=== PATIENT | female | born 1940 | race Caucasian/White ===

== ENCOUNTER 2019-04-25 10:44 | Inpatient (IN) | payer MEDICARE, OTHER ==
[~2019-04-25] VITALS: Ht 162.6 cm; Wt 79.4 kg
[2019-04-25] MEDS ORDERED: PREVALITE POWD231 GM PO (10:51)
[2019-04-25] MEDS ORDERED: BENICAR5 MG PO (10:51)
[2019-04-25 11:21] LABS: BASOPHILS 0.1 % (0-2); EOSINOPHILS 0 % (0-7); HEMOGLOBIN 12.5 g/dL (12-16); IMMATURE GRANULOCYTES 0.3 % (0-5); LYMPHOCYTES 2.2 % (15-50); MCH 29.4 pg (26.0-34.0); MCHC 32.9 g/dL (31.0-37.0); MCV 89.4 fL (80.0-100.0); MEAN PLATELET VOLUME 9.8 fL (7.4-10.4); MONOCYTES 3.8 % (2-11); NEUTROPHILS 93.6 % (40-80); PLATELET COUNT 223 10x3/uL (130-400); RBC 4.25 10x6/uL (4.00-5.40); RDW 12.8 % (11.5-14.5); WBC 13.8 10x3/uL (4.8-10.8)
[2019-04-25 11:29] LABS: INR 1.04 (0.85-1.17); PROTIME 13.5 SECONDS (11.6-15.0)
[2019-04-25 11:30] LABS: CALC OSMOLALITY 278 mosm/kg (275-300); CARBON DIOXIDE 27.9 mmol/L (21.0-32.0); CHLORIDE - SERUM 98 mmol/L (98-107); CREATININE - SERUM 0.7 mg/dL (0.6-1.3); GLUCOSE 147 mg/dL (74-106); POTASSIUM - SERUM 3.8 mmol/L (3.5-5.1); SODIUM 136 mmol/L (136-145); UREA NITROGEN 23 mg/dL (7-18); eGFR NON AFRICAN AMERICAN 86 mL/min (90-120)
[2019-04-25 11:47] LABS: ALBUMIN 3.7 g/dL (3.4-5.0); ALKALINE PHOSPHATASE 95 U/L (30-120); ALT (SGPT) 18 U/L (10-68); BILIRUBIN - TOTAL 0.66 mg/dL (0.2-1.3); CKMB 0.4 U/L (0.0-3.6); CREATINE KINASE 50 UL (21-215); PRO BNP 160 pg/mL (0-450); PROTEIN - SERUM 7.8 g/dL (6.4-8.2)
[2019-04-25 11:48] LABS: TROPONIN-I < 0.017 ng/mL (0.000-0.060)
[2019-04-25 13:39] VITALS: BP 110/56
[2019-04-25 13:42] VITALS: BP 102/49
[2019-04-25 13:51] VITALS: BP 133/76
--- NOTE | 2019-04-25 14:40 | NUR ---
PT RECIEVED TO ROOM 8 VIA STRETCHER FROM ER. PT ALERT AND ORIENTED. IV TO LEFT AND RIGHT AC. LEFT AC WITH ZITHROMAX INFUSING VIA PUMP PER MD ORDERS. RIGHT AC WITH BOLUS INFUSING. BOTH SITES WITHOUT REDNESS OR EDEMA. PT REPORTS CHRONIC NECK LEFT SHOULDER AND BACK PAIN. O2 @ 3L NC IN PLACE. ORIENTED TO BED CONTROLS, CL AND ROOM. PT DENIES ANY QUESTIONS AT THIS TIME. CL WITHIN REACH. ENCOURAGED TO CALL WITH NEEDS.
[2019-04-25] MEDS ORDERED: COMBIVENT RESPIM4 GM INH (14:42)
[2019-04-25] MEDS ORDERED: FLUTICASONE PRO16 GM NASAL (14:42)
--- NOTE | 2019-04-25 15:14 | MORECARE ---
CASE MANAGEMENT DISCHARGE SUMMARY PATIENT: LAUREL SOTO UNIT: [id number] ADM DATE: 04/25/19 AGE: 78 : 41 SEX: F ROOM/BED: D.8187 AUTHOR: TEODORO,DOC PHYSICIAN: REFERRING PHYSICIAN: BRYAN FELIX MD DATE OF SERVICE: 04/25/19 Discharge Plan Patient Name: LAURLE SOTO Facility: [facility]:[place] : 1940 Planned Disposition: Home Anticipated Discharge Date: 04/29/19 Discharge Date: Expected LOS: 4 Initial Reviewer: [email or web address] Initial Review Date: 04/25/2019 Generated: 04/25/19 4:13 pm DCP- Discharge Planning Updated by [email or web address]: Maria Isabel Cobb on 04/25/19 2:[address] DC PLAN: Return home alone at in. ANTICIPATED DC NEEDS: denied known dc needs at time of assessment in the ER. CM met with patient to complete initial dc planning assessment. CM educated patient on the CM role and verbal consent given by patient to complete assessment. CM verified patient's address, phone number, and emergency contact phone numbers. Patient lives at home alone and reports she is independent in her care at home. She has home oxygen with portability. She also has a nebulizer. At discharge patient plans to return home and feels this is a safe discharge. CM discussed availability of home health, rehab services, and medical equipment. Patient denied known discharge needs at this time. Transportation provider at discharge will be her son. CM will continue to follow and will assist as needed with dc plans/needs. Maria Isabel Cobb RN, [facility] DCPIA - Discharge Planning Initial Assessment Updated by [email or web address]: Maria Isabel Cobb on 04/25/19 3:09 pm * Is the patient Alert and Oriented? Yes * How many steps to enter\exit or inside your home? None * PCP Dr. Andrews * Pharmacy [facility] [address] * Preadmission Environment Home Alone * ADLs Independent * Equipment Nebulizer Oxygen * Other Equipment [employer] is DME provider. O2 with portability. * List name and contact numbers for known caregivers / representatives who currently or will assist patient after discharge: Clint Shirley - yvette - [phone] * Verbal permission to speak to the caregivers and representatives has been obtained from the patient. Yes * Community resources currently utilized Other * Please name any agencies selected above. House keeper one time a week. * Additional services required to return to the preadmission environment? No * Can the patient safely return to the preadmission environment? Yes * Has this patient been hospitalized within the prior 30 days at any hospital? No Patient Name: LAUREL SOTO Page [id number] at 1514 All edits/amendments must be made on the electronic document DICTATION DATE: 04/25/19 151 MANAGER BEHAVIOR: SHAJI 04/25/191512 RPT#: [id number] DC DATE: STATUS: ADM IN [facility] [address] [place] [address] END OF REPORT
[2019-04-25 18:04] VITALS: BP 121/54; BMI 30.1
[2019-04-25 19:30] VITALS: BP 98/41
--- NOTE | 2019-04-26 | NUR ---
A&O X 4 IN ROOM. REPORTS SORENESS/ARTHRITIC PAIN ALL OVER. ALSO REPORTS FEELING NAUSEA. IV TO RIGHT FOREARM LEAKING, IV REMOVED WITH CATH INTACT. FLUIDS SWITCHED TO LEFT FOREARM. PT AMBULATED TO BATHROOM AND BACK INDEPENDENTLY. NO FURTHER NEEDS AT THIS TIME.
[2019-04-26 00:30] VITALS: BP 94/52
--- NOTE | 2019-04-26 03:58 | NUR ---
I have reviewed this patient and I concur with the Shift Assessment completed by the Licensed Practical Nurse today this shift.
[2019-04-26 05:24] LABS: BASOPHILS 0.1 % (0-2); EOSINOPHILS 0 % (0-7); HEMATOCRIT 32.4 % (36.0-48.0); HEMOGLOBIN 10.3 g/dL (12-16); IMMATURE GRANULOCYTES 0.3 % (0-5); MCHC 31.8 g/dL (31.0-37.0); MCV 91.3 fL (80.0-100.0); MEAN PLATELET VOLUME 10.3 fL (7.4-10.4); MONOCYTES 5.8 % (2-11); NEUTROPHILS 86.8 % (40-80); PLATELET COUNT 179 10x3/uL (130-400); RBC 3.55 10x6/uL (4.00-5.40); RDW 12.9 % (11.5-14.5); WBC 11.3 10x3/uL (4.8-10.8)
[2019-04-26 05:30] VITALS: BP 100/65
[2019-04-26 05:50] LABS: ALKALINE PHOSPHATASE 62 U/L (30-120); BILIRUBIN - TOTAL 0.33 mg/dL (0.2-1.3); CALCIUM 8.4 mg/dL (8.5-10.1); CARBON DIOXIDE 30.7 mmol/L (21.0-32.0); CHLORIDE - SERUM 106 mmol/L (98-107); CREATININE - SERUM 0.6 mg/dL (0.6-1.3); GLUCOSE 105 mg/dL (74-106); MAGNESIUM - SERUM 1.8 mg/dL (1.8-2.4); PHOSPHOROUS 3.3 mg/dL (2.5-4.9); POTASSIUM - SERUM 3.6 mmol/L (3.5-5.1); SODIUM 142 mmol/L (136-145); eGFR NON AFRICAN AMERICAN > 90 mL/min (90-120)
[2019-04-26 05:53] LABS: ALBUMIN 2.3 g/dL (3.4-5.0); ALT (SGPT) 11 U/L (10-68); CALC OSMOLALITY 283 mosm/kg (275-300); PROTEIN - SERUM 5.7 g/dL (6.4-8.2); UREA NITROGEN 14 mg/dL (7-18)
[2019-04-26 08:28] LABS: NITRITE NEGATIVE (NEGATIVE)
[2019-04-26 08:29] LABS: BILIRUBIN NEGATIVE (NEGATIVE); GLUCOSE 50 mg/dL (NEGATIVE); KETONE NEGATIVE (NEGATIVE); UROBILINOGEN NORMAL (NORMAL)
--- NOTE | 2019-04-26 09:00 | NUR ---
ALERT AND ORIENTED X4. SLIGHT DYSPNEA NOTED WITH 02 2L N/C. IV TO LEFT FOREARM. HRRR WITH BREATH SOUNDS DIMINISHED X4 POSTERIOR. ENOURAGED TO USE CALL LIGHT FOR ASSIST. DENIES ANY PAIN OR DISCOMFORT AT THIS TIME
[2019-04-26 09:39] VITALS: BP 99/51
[2019-04-26 13:20] VITALS: BP 129/54
--- NOTE | 2019-04-26 14:55 | NUR ---
PATIENT ADMITTED AND ORIENTED TO ROOM. ALERT AND ORIENTED X4 WITH SLIGHT DYSPNEA NOTED WITH MINIMAL EXERTION. INSPIRATORY AND EXPIRATORY WHEEZES NOTED X4 POSTERIOR WITH CAP REFILL <3 SEC AND PUSLE OX 93%ON RA. HRRR AND NO PERIPERAL EDEMA NOTED. ENCOURAGED TO USE CALL LIGHT FOR ASSIST.
[2019-04-26 16:28] VITALS: BP 100/34
[2019-04-26 20:00] VITALS: BP 115/57
--- NOTE | 2019-04-26 20:15 | NUR ---
LYING QUEITLY WITH NO DISTRESS NOTED. RESP UNALBORED. O2 @ 2L PER NC ON. UP AD FAN TO BR. NO COMPLAITNS VOCIED. CL IN REACH
[2019-04-27] VITALS: BP 94/46
--- NOTE | 2019-04-27 03:09 | NUR ---
I have reviewed this patient and I concur with the Shift Assessment completed by the Licensed Practical Nurse today this shift.
[2019-04-27 04:00] VITALS: BP 109/53
[2019-04-27 06:41] LABS: BASOPHILS 0.1 % (0-2); EOSINOPHILS 0.8 % (0-7); HEMATOCRIT 31.4 % (36.0-48.0); HEMOGLOBIN 9.8 g/dL (12-16); IMMATURE GRANULOCYTES 0.3 % (0-5); LYMPHOCYTES 11.7 % (15-50); MCHC 31.2 g/dL (31.0-37.0); MCV 92.9 fL (80.0-100.0); MEAN PLATELET VOLUME 10.7 fL (7.4-10.4); MONOCYTES 6.5 % (2-11); NEUTROPHILS 80.6 % (40-80); PLATELET COUNT 185 10x3/uL (130-400); RBC 3.38 10x6/uL (4.00-5.40); RDW 13.2 % (11.5-14.5)
[2019-04-27 06:43] LABS: WBC 7.4 10x3/uL (4.8-10.8)
[2019-04-27 07:12] LABS: CALC OSMOLALITY 284 mosm/kg (275-300); CALCIUM 7.9 mg/dL (8.5-10.1); CARBON DIOXIDE 29.8 mmol/L (21.0-32.0); CHLORIDE - SERUM 108 mmol/L (98-107); CREATININE - SERUM 0.6 mg/dL (0.6-1.3); GLUCOSE 102 mg/dL (74-106); MAGNESIUM - SERUM 2.1 mg/dL (1.8-2.4); PHOSPHOROUS 2.9 mg/dL (2.5-4.9); POTASSIUM - SERUM 3.6 mmol/L (3.5-5.1); SODIUM 143 mmol/L (136-145); UREA NITROGEN 13 mg/dL (7-18); eGFR NON AFRICAN AMERICAN > 90 mL/min (90-120)
--- NOTE | 2019-04-27 09:22 | NUR ---
PT ALERT X 4. EXPIRATORY WHEEZES TO ALL STOREY, PT REPORTING SOB, 2L O2 PER NC. IV TO LEFT FOREARM, PATENT, DRESSING CDI. PT REPORTING NO PAIN AT THIS TIME. BED LOW, CALL LIGHT IN REACH. NO OTHER NEEDS AT THIS TIME.
--- NOTE | 2019-04-27 09:47 | EC ---
PATIENT:LAUREL SOTO DATE OF SERVICE: 04/25/19 SEX: F MEDICAL RECORD: [id number] DATE OF : 42 LOCATION:D.MS Jain AGE OF PATIENT: 78 ADMISSION DATE: 04/25/19 REFERRING PHYSICIAN: INTERPRETING PHYSICIAN: JESSEE RASMUSSEN MD ECHOCARDIOGRAM REPORT ECHO CHARGES 4 ECHO COMPLETE Date: 04/26/19 CLINICAL DIAGNOSIS: DYSPNEA ECHOCARDIOGRAPHIC MEASUREMENTS (adult normal given) AC root (d.<3.7cm) 2.8 cm LV Septum d (<1.2 cm> 1.1 cm Valve Excursion 1.5 cm LV Septum (systole) 1.3 cm Left Atria (s.<4.0cm> 2.6 cm LVPW d(<1.2cm) 1.2 cm RV (d.<2.3cm) 2.9 cm LVPW (sytole) 1.3 cm LV diastole(<5.6CM) 3.7 cm MV E-F(>70mm/sec) cm LV systole 2.6 cm LVOT Diameter 1.9 cm MV exc.(>10mm) cm Est.ejection fraction (50-75%) % DOPPLER: LVIT cm/sec A 97 cm/sec E 65 cm/sec LA cm/sec RVSP 20.4 mmHg LVOT 124 cm/sec AOP1/2T m/s Asc. Ao 126 cm/sec RVOT 75 cm/sec RA cm/sec PA 143 cm/sec AV Gradient Peak 6.3 mmHg AV Mean 3.5 mmHg AV Area 2.4 cm MV Gradient Peak 7.2 mmHg MV Mean 3.4 mmHg MV Area cm COMMENTS: Social Media Project Manager: Hien BENNETT Refractory Technician: 3 Dr. Gates TAPE# PACS Pericardial Effusion N DATE OF SERVICE: Adequate 2D, color flow imaging, spectral Doppler, and M-Mode No LVH. LV internal dimensions are normal. Wall motion is normal. EF is greater than or equal to 55%. Aortic valve is sclerotic. No evidence of stenosis by Doppler interrogation. Left atrium is normal. Mitral valve shows no prolapse. Trace MR. Right-sided chambers are grossly normal. Trace TR. TRANSINT:[id number] Voice Confirmation ID: [id number] DOCUMENT ID: [id number] ECHOCARDIOGRAM REPORT [id number] LAUREL SOTO JESSEE RASMUSSEN MD at 0947 CC: [id number] DICTATION DATE: 04/26/19 1232 PHARMACY TECH: 04/26/19 1610 ADM IN [place] [id number] [place] [id number]
[2019-04-27 12:57] VITALS: BP 115/51
[2019-04-27 16:47] VITALS: BP 109/59
[2019-04-27 20:00] VITALS: BP 149/69
--- NOTE | 2019-04-27 20:30 | NUR ---
LYING QUEITLY WITH NO DISTESS NOTED. RESP EVEN AND UNALBORED. IV TO LEFT WRIST INTACT WITHOUT REDNESS OR EDEMA NOTED. CL IN REACH
--- NOTE | 2019-04-28 01:36 | NUR ---
I have reviewed this patient and I concur with the Shift Assessment completed by the Licensed Practical Nurse today this shift.
[2019-04-28 04:00] VITALS: BP 120/57
[2019-04-28 05:35] LABS: BASOPHILS 0.2 % (0-2); IMMATURE GRANULOCYTES 0.4 % (0-5); LYMPHOCYTES 11.7 % (15-50); MCHC 31.3 g/dL (31.0-37.0); MCV 92.8 fL (80.0-100.0); MEAN PLATELET VOLUME 9.9 fL (7.4-10.4); MONOCYTES 5.1 % (2-11); NEUTROPHILS 81.6 % (40-80); PLATELET COUNT 184 10x3/uL (130-400); RBC 3.45 10x6/uL (4.00-5.40); RDW 12.9 % (11.5-14.5)
[2019-04-28 05:36] LABS: WBC 4.9 10x3/uL (4.8-10.8)
[2019-04-28 06:16] LABS: % SATURATION 20 % (15-55); IRON 35 ug/dl (35-150); TOTAL IRON BIND CAPACITY 168 ug/dl (260-445); UNSAT IRON BIND CAPACITY 133 ug/dl (150-375)
[2019-04-28 06:40] LABS: CALC OSMOLALITY 280 mosm/kg (275-300); CARBON DIOXIDE 33.5 mmol/L (21.0-32.0); CHLORIDE - SERUM 105 mmol/L (98-107); CREATININE - SERUM 0.7 mg/dL (0.6-1.3); FERRITIN 169 ng/mL (3-244); GLUCOSE 118 mg/dL (74-106); MAGNESIUM - SERUM 2.2 mg/dL (1.8-2.4); PHOSPHOROUS 3.4 mg/dL (2.5-4.9); POTASSIUM - SERUM 3.5 mmol/L (3.5-5.1); SODIUM 141 mmol/L (136-145); UREA NITROGEN 10 mg/dL (7-18); eGFR NON AFRICAN AMERICAN 86 mL/min (90-120)
--- NOTE | 2019-04-28 07:00 | NUR ---
RESTING IN BED WITH EYES OPEN, ALERT AND ORIENTED. IV LOCATED TO LEFT HAND RUNNING LR @ 50ML. CURRENTLY RCVING 2L VIA NC. NO S/S OF DISTRESS, DENIES NEEDS, WILL CONT TO MONITOR.
[2019-04-28 08:34] VITALS: BP 127/58
[2019-04-28 12:19] VITALS: BP 131/64
[2019-04-28 16:35] VITALS: BP 134/68
[2019-04-28 20:00] VITALS: BP 133/61
--- NOTE | 2019-04-28 20:40 | NUR ---
LYING QUEITLY WITH NO DISTRESS NOTED. O2 @ 2L PER NC ON. RESP UNLABORED. IV TO LEFT HAND INTACT WITHOUT REDNESS OR EDEMA NOTED. CL IN REACH
[2019-04-29] VITALS: BP 115/56
--- NOTE | 2019-04-29 01:46 | NUR ---
I have reviewed this patient and I concur with the Shift Assessment completed by the Licensed Practical Nurse today this shift.
[2019-04-29 04:00] VITALS: BP 125/58
[2019-04-29 05:15] LABS: BASOPHILS 0.2 % (0-2); EOSINOPHILS 1.5 % (0-7); HEMATOCRIT 32.5 % (36.0-48.0); IMMATURE GRANULOCYTES 0.4 % (0-5); LYMPHOCYTES 15.2 % (15-50); MCH 28.3 pg (26.0-34.0); MCHC 30.8 g/dL (31.0-37.0); MCV 92.1 fL (80.0-100.0); MEAN PLATELET VOLUME 9.8 fL (7.4-10.4); MONOCYTES 7.6 % (2-11); NEUTROPHILS 75.1 % (40-80); RBC 3.53 10x6/uL (4.00-5.40); RDW 12.7 % (11.5-14.5); WBC 5.4 10x3/uL (4.8-10.8)
[2019-04-29 05:32] LABS: PLATELET COUNT 234 10x3/uL (130-400)
[2019-04-29 05:55] LABS: CALC OSMOLALITY 283 mosm/kg (275-300); CALCIUM 7.9 mg/dL (8.5-10.1); CARBON DIOXIDE 33.9 mmol/L (21.0-32.0); CHLORIDE - SERUM 105 mmol/L (98-107); CREATININE - SERUM 0.6 mg/dL (0.6-1.3); GLUCOSE 97 mg/dL (74-106); PHOSPHOROUS 3.5 mg/dL (2.5-4.9); POTASSIUM - SERUM 3.8 mmol/L (3.5-5.1); SODIUM 143 mmol/L (136-145); UREA NITROGEN 10 mg/dL (7-18); eGFR NON AFRICAN AMERICAN > 90 mL/min (90-120)
--- NOTE | 2019-04-29 06:50 | NUR ---
ALERT AND ORIENTED, RESTING IN BED WITH EYES OPEN. NO C/O PAIN. NO S/S OF ACUTE DISTRESS NOTED. SOB ON EXERTION. ON 4L O2, NC. IV TO LEFT HAND, LR INFUSING @ 50ML/HR. SITE RED AND BRUISED. DENIES ANY NEEDS AT THIS TIME. CALL LIGHT IN REACH. WILL CONTINUE TO MONITOR.
--- NOTE | 2019-04-29 09:00 | NUR ---
DISCONTINUED IV TO LEFT HAND, INFILTRATED, CATHETER TIP INTACT. RESITED TO RIGHT FOREARM, 22 GA X1 STICK WITH BLOOD RETURN. DENIES ANY NEEDS AT THIS TIME. CALL LIGHT IN REACH. WILL CONTINUE TO MONITOR.
[2019-04-29 10:19] VITALS: BP 159/78
[2019-04-29 12:45] VITALS: BP 108/66
--- NOTE | 2019-04-29 12:56 | NUR ---
I have reviewed this patient and I concur with the Shift Assessment completed by the Licensed Practical Nurse today this shift.
[2019-04-29 13:40] VITALS: Ht 162.6 cm; Wt 79.4 kg
--- NOTE | 2019-04-29 16:28 | NUR ---
REHAB PRESCREENING Rehab referral received and chart reviewed. PT and OT signed off on this patient 04/26/2019. She does not have a documented need for 2 disciplines of therapy and does not meet admission criteria. Thank you for this referral! Ester Brewer, BEAUTY OPERATOR APPRENTICE Rehab PD
[2019-04-29 17:15] VITALS: BP 160/80
--- NOTE | 2019-04-29 18:25 | NUR ---
ALERT AND ORIENTED, RESTING IN BED WITH EYES OPEN. NO C/O PAIN. NO S/S OF ACUTE DISTRESS NOTED. DENIES ANYTHING FURTHER AT THIS TIME. CALL LIGHT IN REACH. WILL CONTINUE TO MONITOR.
--- NOTE | 2019-04-29 20:00 | NUR ---
PT SITTING UP IN BED WITHOUT DISTRESS, AOX4. STATES SHE HAS HEADACHE 07/27. GAVE TYLENOL ORDERED. O2 4L/NC. SOB WITH EXERTION TO BATHROOM. IV RIGHT FA INFUSING LR @ 50. DENIES NEEDS AT THIS TIME. CL IN REACH, WILL CTM
[2019-04-29 20:24] VITALS: BP 124/73
[2019-04-30 00:34] VITALS: BP 121/60
--- NOTE | 2019-04-30 04:28 | NUR ---
PT STATES PAIN IN HIPS 05/27. REQUESTED TYLENOL AND TO TAKE HER PROTONIX SO SHE DID NOT HAVE TO BE WOKEN UP LATER. DENIES OTHER NEEDS. CL IN REACH, WILL CTM
[2019-04-30 04:54] VITALS: BP 97/72
[2019-04-30 06:35] LABS: BASOPHILS 0.2 % (0-2); EOSINOPHILS 2.6 % (0-7); HEMATOCRIT 33.4 % (36.0-48.0); HEMOGLOBIN 10.3 g/dL (12-16); IMMATURE GRANULOCYTES 0.6 % (0-5); LYMPHOCYTES 11.5 % (15-50); MCH 28.5 pg (26.0-34.0); MCHC 30.8 g/dL (31.0-37.0); MCV 92.3 fL (80.0-100.0); MEAN PLATELET VOLUME 9.6 fL (7.4-10.4); NEUTROPHILS 75.1 % (40-80); PLATELET COUNT 227 10x3/uL (130-400); RBC 3.62 10x6/uL (4.00-5.40); RDW 12.7 % (11.5-14.5); WBC 5.4 10x3/uL (4.8-10.8)
--- NOTE | 2019-04-30 06:50 | NUR ---
ALERT AND ORIENTED, RESTING IN BED WITH EYES OPEN. NO C/O PAIN. NO S/S OF ACUTE DISTRESS NOTED. UP WITH ASSIST. SOB ON EXERTION. ON 4L O2, NC. WHEEZING RML, RLL AND LLL. DIMINISHED RUL AND PIERRE. IV TO RIGHT FOREARM, LR INFUSING @ 50ML/HR. SITE PATENT WITHOUT REDNESS OR SWELLING. ON TELEMETRY 59 SB. DENIES ANY NEEDS AT THIS TIME. CALL LIGHT IN REACH. WILL CONTINUE TO MONITOR.
[2019-04-30 07:01] LABS: CALC OSMOLALITY 283 mosm/kg (275-300); CARBON DIOXIDE 33.3 mmol/L (21.0-32.0); CHLORIDE - SERUM 104 mmol/L (98-107); CREATININE - SERUM 0.6 mg/dL (0.6-1.3); GLUCOSE 102 mg/dL (74-106); POTASSIUM - SERUM 3.6 mmol/L (3.5-5.1); SODIUM 143 mmol/L (136-145); UREA NITROGEN 10 mg/dL (7-18); eGFR NON AFRICAN AMERICAN > 90 mL/min (90-120)
--- NOTE | 2019-04-30 08:32 | CN ---
PATIENT NAME:LAUREL SOTO MEDICAL RECORD: [id number] : 42 LOCATION:D.MS [id number] ADMIT DATE: 04/25/19 ACCOUNT: [id number] CONSULTING PHYSICIAN: JESSEE RASMUSSEN MD REFERRING PHYSICIAN: BRYAN FELIX MD DATE OF CONSULTATION: 04/28/2019 HISTORY OF PRESENT ILLNESS: A 78-year-old female with a history of hypertension and hyperlipidemia, admitted with rapid progressing fatigue, fever, shortness of breath, chest pain ongoing for about 48 hours prior to admission. She was found to have an abnormality in the chest x-ray. This was round of pneumonia versus mass. She reports prior to current admission was actually did quite well, exercises, walking fairly frequently. She was not been told previously heart disease or obstructive pulmonary disease. We are asked to see her concerning her cardiovascular status. PAST MEDICAL HISTORY: Includes; 1. History of hypertension. 2. Dyslipidemia. ALLERGIES: PENICILLIN, ERYTHROMYCIN, METRONIDAZOLE, PEPCID, AND SYMBICORT. CHRONIC MEDICATIONS: Include Combivent 1 puff q.4 p.r.n., cholestyramine 4 gram b.i.d., Benicar 5 mg p.o. daily, fludrocortisone nasal every day. SOCIAL HISTORY: Nonsmoker, nondrinker. She takes care of all her ADLs. Stays quite active. REVIEW OF SYSTEMS: The patient reports easy bruising but reports no swollen glands. The patient reports no fever, no night sweats, no significant weight gain, no significant weight loss. No significant exercise tolerance. The patient reports no dry eyes, no irritation, no vision change. Patient reports no difficulty hearing and no ear pain. Patient reports no frequent nose bleeds or nose and sinus problems. Patient reports on arm pain on exertion. No shortness of breath while lying down. No history of heart murmur. Patient reports no cough, no wheezing or coughing up blood. Patient reports no abdominal pain, no vomiting. Normal appetite. No diarrhea and not vomiting blood. No nausea and no constipation. Patient reports no incontinence. No difficulty urinating. No hematuria. No increased frequency. Patient reports no muscle aches. No weakness, no arthralgias, no back pain. No swelling of the extremities. Patient reports no abnormal mole, no jaundice, no rashes. Reports no loss of consciousness. No weakness and no numbness. No seizures, dizziness, or headaches. The patient reports no depression, no sleep disturbance, feeling safe in a relationship and no alcohol abuse. Patient reports on fatigue. Reports no runny nose or sinus pressure. No itching, no hives, and no frequent sneezing. PHYSICAL EXAMINATION: GENERAL: Pleasant female, in no acute distress. VITAL SIGNS: Blood pressure 131/64, pulse 78 and regular. HEENT: Normocephalic, atraumatic. NECK: No JVD or bruits noted. HEART: Regular. II/ ejection murmur. LUNGS: Good air excursion. ABDOMEN: Soft, nontender. CONSULT REPORT [id number] CHARLESLAUREL F EXTREMITIES: Pulses well preserved 2+ with no edema. DIAGNOSTIC DATA: EKG shows poor R-wave progression. IMPRESSION: Given rapid onset, I doubt acute coronary syndrome without acute ECG changes or any change in cardiac enzymes. Certainly given risk factors, could consider a noninvasive evaluation when current medical condition improves. Further recommendations based on clinical course. TRANSINT:[id number] Voice Confirmation ID: [id number] DOCUMENT ID: [id number] JESSEE RASMUSSEN MD at 0832 CC: [id number] DICTATION DATE: 04/28/19 1310 DRUM STOCK CLERK: 04/28/19 1351 ADM IN [place] [id number] [place] [id number]
[2019-04-30 09:09] VITALS: BP 129/58
--- NOTE | 2019-04-30 11:09 | NUR ---
I have reviewed this patient and I concur with the Shift Assessment completed by the Licensed Practical Nurse today this shift.
[2019-04-30 13:08] VITALS: BP 133/70
--- NOTE | 2019-04-30 15:17 | NUR ---
OT NOTE: PT AGREEABLE TO PARTICIPATE IN THERAPY. REQUESTED THAT WHEN WE WERE FINISHED, IF I COULD STAY AND MAKE SURE SHE WAS BREATHING OK. EXPLAINED THAT WE WOULD MONITOR HER 02 SATS THROUGHOUT SESSION. PT SLIGHTLY IMPULSIVE AND BALANCE IS FAIR. INDEP WITH BED MOB; ABLE TO AMB TO BATHROOM WITH SBA. AMBULATED INTO HALLWAY WITH MIN ASSIST WITHOUT USE OF AD.. OCCASSIONAL LOB. PT ABLE TO AMB APPROX 110'..PT BECAME VERY SOB AT END OF WALK. 02 CHECKED MIDWAY THROUGH AMB AND HAD DROPPED TO 84 WHILE HER 02 WAS ON 4L..UPON RETURNING TO ROOM, PT WAS SOB BUT AFTER APPROX 4 MIN, HER SATS INCREASED BACK TO 92 THEN 94. D/W PT AND CM THAT PT WOULD PROBABLY BENEFIT FROM IP REHAB. PT EXPLAINED THAT SHE DID NOT LIKE IN HOUSE REHAB BECAUSE OF THEIR TMT WITH HER . BUT SHE WOULD STILL GO BECAUSE SHE DID NOT FEEL LIKE SHE WAS READY TO GO HOME ALONE WITHOUT ASSIST. PROVIDED INFO TO CM. JENNA SHAFER, OTR/L [phone]
[2019-04-30 16:45] VITALS: BP 119/71
--- NOTE | 2019-04-30 18:37 | NUR ---
ALERT AND ORIENTED, RESTING IN BED WITH EYES OPEN. NO C/O PAIN. NO S/S OF ACUTE DISTRESS NOTED. DENIES ANY NEEDS AT THIS TIME. CALL LIGHT IN REACH. WILL CONTINUE TO MONITOR.
--- NOTE | 2019-04-30 18:52 | NUR ---
OT NOTE: PT COMPLETED BED MOB WITH SBA. PT COMPLETED EOB SITTING WITH SBA. PT COMPLETED BUE AROM AXS AT EOB. PT STATED AFTER AN ACTIVITY SHE FEELS SOB EVEN IF O2 SAT IS NORMAL. [phone] THANK YOU,HANS PETERSEN
--- NOTE | 2019-04-30 19:40 | NUR ---
PT LYING IN BED RESTING WITHOUT DISTRESS, AOX4. IV LEFT FA INFUSING LR @ 50. O2 4L/NC. LUNG SOUNDS DIMINISHED BILAT. SCDS ON. REQUESTED AND GIVEN TYLENOL FOR SORE HIPS. SOB WITH EXERTION. NON PRODUCTIVE COUGH. DENIES OTHER NEEDS. CL IN REACH, WILL CTM
[2019-04-30 20:23] VITALS: BP 157/69
--- NOTE | 2019-04-30 21:00 | NUR ---
RIGHT FA IV INFILTRATED. REMOVED WITH CATHETER INTACT. RESITED 22G IV LEFT FA X1 ATTEMPT. DENIES OTHER NEEDS. WILL CTM
[2019-05-01 01:00] VITALS: BP 148/85
[2019-05-01 04:41] VITALS: BP 157/79
[2019-05-01 05:49] LABS: BASOPHILS 0.4 % (0-2); EOSINOPHILS 2.9 % (0-7); HEMATOCRIT 36.1 % (36.0-48.0); HEMOGLOBIN 11.4 g/dL (12-16); IMMATURE GRANULOCYTES 0.4 % (0-5); LYMPHOCYTES 15.4 % (15-50); MCH 28.9 pg (26.0-34.0); MCHC 31.6 g/dL (31.0-37.0); MCV 91.6 fL (80.0-100.0); MEAN PLATELET VOLUME 9.5 fL (7.4-10.4); MONOCYTES 9.8 % (2-11); NEUTROPHILS 71.1 % (40-80); RBC 3.94 10x6/uL (4.00-5.40); RDW 12.8 % (11.5-14.5); WBC 4.9 10x3/uL (4.8-10.8)
[2019-05-01 06:03] LABS: PLATELET COUNT 274 10x3/uL (130-400)
--- NOTE | 2019-05-01 07:00 | NUR ---
BEDSIDE SHIFT REPORTING COMPLETED. ASSUMED CARE FOR THIS PT. SHIFT ASSESSMENT COMPLETED. PT IS A&O LYING DOWN IN BED RESTING QUIETLY. RR NONLABORED CURRENTLY WITH NC@3.5L IN PLACE. PT STATES SHE GETS SOB WITH ANY ACTIVITY. LUNGS ARE VERY DIMINISHED AND HARD TO AUSCULTATE. PT HAS L.FA PIV WITH INTERMITT. ANBX. PT DENIES ANY CURRENT NEEDS, WILL CHECK CHART AND ORDERS AND CPOC.
[2019-05-01 08:02] VITALS: BP 147/89
--- NOTE | 2019-05-01 11:08 | NUR ---
LACTATED RINGERS 1000 ML RUNNING AT 999 ML/H AND ZITHROMAX BOTH INITIATED 1326. PT TRANSFERRED TO FLOOR BEFORE EITHER WERE FINISHED. BOTH REASSESSED BY STEPHANE TODD AT 1538.
--- NOTE | 2019-05-01 12:00 | NUR ---
PT LYING IN BED VISITING WITH FAMILY. PT DENIES ANY CURRENT PAIN OR NEEDS AT THIS TIME. CL IN REACH. WILL CTM.
--- NOTE | 2019-05-01 12:20 | NUR ---
PT C/O BURNING IN HER VAGINA WHEN SHE URINATES AND JUST RESTING, REDDNESS IS NOTED. SHE STATES SHE IS PRONE TO YEAST INFECTIONS. NEW ORDERS OBTAINED FOR UA AND WILL COLLECT USING CLEAN CATCH. EXPLAINED PROCEDURE TO PT SHE VERBALIZED UNDERSTANDING. WILL CTM.
--- NOTE | 2019-05-01 12:30 | NUR ---
OT NOTE: PT LIEING IN BED. STATED THAT SHE WAS UPSET THAT SHE WAS NOT GETTING TO GO TO REHAB.. AGAIN STATED THAT SHE DIDNT KNOW WHAT TO DO ABOUT HER 02 DROPPING. IM UNSURE IF THERE IS A HX OF THIS, BUT PT STATED THAT SHE WALKED DAILY AT THE MALL. TODAY, PT WAS ABLE TO SUSANA ROBE WITH SET UP AND SET UP WITH SOCKS WITH EXT TIME. REPORTS INCREASED ARTHRITIS PAIN MAKES LE DRESSING DIFFICULT. PT ABLE TO AMB TO BATHROOM AND PERFORM TOILETING WITHOUT ASSIST. PT REQUESTED TO AMBULATE. REQUIRED USE OF GAIT BELT, 02 AT 4L, AND IV.. PT ABLE TO AMB WITH MIN ASSIST, HOWEVER, WHEN 02 CHECKED AT APPROX 100 FT, IT HAD DROPPED TO 84%...WHEN SHE RETURNED TO ROOM, SHE WAS VERY SOB.. 02 IMPROVED AFTER APPROX 4 MIN OF PROPER BREATHING WITH VERBAL INSTRUCTION. MET WITH CM AND DISCUSSED DC PLANS. SHE SPOKE WITH REHAB AND PROVIDED INFO REGARDING DROP IN SATS. JENNA SHAFER, OTR/L [phone]
[2019-05-01 13:25] VITALS: BP 121/76
[2019-05-01] MEDS ORDERED: MUCINEX DM ER1 EAC1 PO (15:15)
[2019-05-01] MEDS ORDERED: SINGULAIR10 MG PO (15:15)
[2019-05-01] MEDS ORDERED: ALBUTEROL2.5 MG/3 M INH (15:15)
[2019-05-01 15:16] LABS: BILIRUBIN NEGATIVE (NEGATIVE); GLUCOSE NEGATIVE (NEGATIVE); KETONE NEGATIVE (NEGATIVE); NITRITE NEGATIVE (NEGATIVE); UROBILINOGEN NORMAL (NORMAL)
--- NOTE | 2019-05-01 16:04 | NUR ---
OT NOTE: PT COMPLETED BED MOB TASKS WITH SBA. PT COMPLETED EOB SITTING WITH SPV. PT COMPLETED HYGIENE TASKS AT EOB WITH SET UP. PT HAS CONTINUING SENSATION OF SOB WITH ACTIVITIES. PT STATED SHE HAD BEEN DENIED FOR THERAPY. MAXWELL ADVISED PT TO DISCUSS SITUATION WITH DIRECTOR OF HOME CARE HOSPICE TO FURTHER UNDERSTANDING OF SITUATION,DETAILS, AND OPTIONS. [phone] ZAINA GREENBERG COTA
--- NOTE | 2019-05-01 17:00 | NUR ---
PT REQUESTED FRESH ICE WATER AND WAS PROVIDED WITH IT. RR NONLABORED AT THIS TIME. PT STATES SHE IS FEELING "ALRIGHT" DENIES ANY CURRENT NEEDS. CL IN REACH, WILL CTM.
[2019-05-01 17:56] VITALS: BP 122/78
--- NOTE | 2019-05-01 18:45 | NUR ---
PT CALLED REQUESTING PRN TYELENOL FOR HEADACHE AND WAS PROVIDED WITH IT. PT VOICED THANKS AND DENIES ANY FURTHER NEEDS AT THIS TIME. WILL PASS ON IN SHIFT REPORT. CL IN REACH, BED IN LOWEST, SIDE RAILS X2.
--- NOTE | 2019-05-01 20:00 | NUR ---
PT LYING IN BED RESTING WITHOUT DISTRESS, AOX4. IV LEFT FA INFUSING NS @ 50. STATES HAVING SOME PAIN IN HIPS AND ANKLES FROM ARTHRITIS. NURSES AID ASSISTING PT UP TO SHOWER. DENIES FURTHER NEEDS. WILL CTM
[2019-05-01 20:50] VITALS: BP 152/71
[2019-05-01 21:06] LABS: IMMUNOGLOBULIN E 39 IU/mL (6-495)
--- NOTE | 2019-05-01 23:00 | NUR ---
PT IV INFILTRATED. REMOVED WITH CATHETER INTACT. STARTED 22G IV RIGHT FA X2 ATTEMPTS. DENIES OTHER NEEDS. WILL CTM
[2019-05-02 00:45] VITALS: BP 142/68
--- NOTE | 2019-05-02 07:15 | NUR ---
REC'D IN BED AWAKE AND ALERT. RESP EVEN AND UNLABORED WITH NO DISTRESS NOTED. CAN EXPRESS NEEDS AND WANTS. NO C/O NOTED OR VOICED. ASSESSMENT COMPLETED. C/L IN REACH AT BEDSIDE.
[2019-05-02 08:47] VITALS: BP 159/82
--- NOTE | 2019-05-02 10:17 | NUR ---
NUTRITION F/U PT TOLERATING AHA DIET WITH GOOD PO INTAKE RECENT MEALS. WILL CONTINUE TO PROVIDE DIET, MONITOR PO INTAKE. RD FOLLOWING
[2019-05-02 10:40] LABS: BASOPHILS 0.4 % (0-2); EOSINOPHILS 2.9 % (0-7); HEMATOCRIT 35.2 % (36.0-48.0); IMMATURE GRANULOCYTES 0.4 % (0-5); LYMPHOCYTES 18.9 % (15-50); MCH 28.9 pg (26.0-34.0); MCHC 31.3 g/dL (31.0-37.0); MCV 92.4 fL (80.0-100.0); MEAN PLATELET VOLUME 9.1 fL (7.4-10.4); MONOCYTES 6.4 % (2-11); PLATELET COUNT 295 10x3/uL (130-400); RBC 3.81 10x6/uL (4.00-5.40); RDW 13.1 % (11.5-14.5); WBC 4.6 10x3/uL (4.8-10.8)
[2019-05-02 10:51] LABS: CALC OSMOLALITY 280 mosm/kg (275-300); CALCIUM 8.5 mg/dL (8.5-10.1); CARBON DIOXIDE 35.2 mmol/L (21.0-32.0); CHLORIDE - SERUM 102 mmol/L (98-107); CREATININE - SERUM 0.6 mg/dL (0.6-1.3); GLUCOSE 113 mg/dL (74-106); POTASSIUM - SERUM 3.4 mmol/L (3.5-5.1); SODIUM 139 mmol/L (136-145); UREA NITROGEN 17 mg/dL (7-18); eGFR NON AFRICAN AMERICAN > 90 mL/min (90-120)
--- NOTE | 2019-05-02 11:53 | MORECARE ---
CASE MANAGEMENT DISCHARGE SUMMARY PATIENT: LAUREL SOTO UNIT: [id number] ADM DATE: 04/25/19 AGE: 78 : 42 SEX: F ROOM/BED: D.9931 AUTHOR: RUEL VALERIO PHYSICIAN: REFERRING PHYSICIAN: BRYAN FELIX MD DATE OF SERVICE: 05/02/19 Discharge Plan Patient Name: LAUREL SOTO Facility: [facility]:[place] : 1940 Planned Disposition: Home Anticipated Discharge Date: 04/29/19 Discharge Date: Expected LOS: 4 Initial Reviewer: [email or web address] Initial Review Date: 04/25/2019 Generated: 05/02/19 12:52 pm Comments DCP- Discharge Planning Updated by [email or web address]: Yuliana Lyon on 05/02/19 10:[address] IMM SERVED AND EXPLAINED. MABLE FOR INPATIENT REHAB AT [facility]. DCP- Discharge Planning Updated by [email or web address]: Maria Isabel Cobb on 04/25/19 2:[address] DC PLAN: Return home alone at co. ANTICIPATED DC NEEDS: denied known dc needs at time of assessment in the ER. CM met with patient to complete initial dc planning assessment. CM educated patient on the CM role and verbal consent given by patient to complete assessment. CM verified patient's address, phone number, and emergency contact phone numbers. Patient lives at home alone and reports she is independent in her care at home. She has home oxygen with portability. She also has a nebulizer. At discharge patient plans to return home and feels this is a safe discharge. CM discussed availability of home health, rehab services, and medical equipment. Patient denied known discharge needs at this time. Transportation provider at discharge will be her son. CM will continue to follow and will assist as needed with dc plans/needs. Maria Isabel Cobb RN, [facility] DCPIA - Discharge Planning Initial Assessment Updated by [email or web address]: Maria Isabel Cobb on 04/25/19 3:09 pm * Is the patient Alert and Oriented? Yes * How many steps to enter\exit or inside your home? None * PCP Dr. Andrews * Pharmacy [facility] on [address] * Preadmission Environment Home Alone * ADLs Independent * Equipment Nebulizer Oxygen * Other Equipment [employer] is DME provider. O2 with portability. * List name and contact numbers for known caregivers / representatives who currently or will assist patient after discharge: Clint crawford - [phone] * Verbal permission to speak to the caregivers and representatives has been obtained from the patient. Yes * Community resources currently utilized Other * Please name any agencies selected above. House keeper one time a week. * Additional services required to return to the preadmission environment? No * Can the patient safely return to the preadmission environment? Yes * Has this patient been hospitalized within the prior 30 days at any hospital? No Last DP export: 04/25/19 2:14 pm Patient Name: LAUREL SOTO Page [id number] at 1153 All edits/amendments must be made on the electronic document DICTATION DATE: 05/02/19 1152 SCRUB NURSE: SHAJI 05/02/19 1152 RPT#: [id number] DC DATE: STATUS: ADM IN [facility] [address] [place] [address] END OF REPORT
[2019-05-02 12:55] VITALS: BP 130/71
--- NOTE | 2019-05-02 13:10 | MORECARE ---
CASE MANAGEMENT DISCHARGE SUMMARY PATIENT: LAUREL SOTO UNIT: [id number] ADM DATE: 04/25/19 AGE: 78 : 41 SEX: F ROOM/BED: D.5173 AUTHOR: TEODORODOC PHYSICIAN: REFERRING PHYSICIAN: BRYAN FELIX MD DATE OF SERVICE: 05/02/19 Discharge Plan Patient Name: LAUREL SOTO Facility: [facility]:[place] : 1940 Planned Disposition: Home Anticipated Discharge Date: 04/29/19 Discharge Date: Expected LOS: 4 Initial Reviewer: [id number] Initial Review Date: 04/25/2019 Generated: 05/02/19 2:10 pm Comments DCP- Discharge Planning Updated by [id number]: Yuliana Lyon on 05/02/19 12:[address] THE PATIENT HAS CHANGED HER MIND ABOUT INPATIENT REHAB, SHE WOULD LIKE TO TALK TO HER DR ABOUT HOME HEALTH DCP- Discharge Planning Updated by [email or web address]: Yuliana Lyon on 05/02/19 10:[address] IMM SERVED AND EXPLAINED. MABLE FOR INPATIENT REHAB AT [facility]. DCP- Discharge Planning Updated by [id number]: Maria Isabel Cobb on 04/25/19 2:[address] DC PLAN: Return home alone at ok. ANTICIPATED DC NEEDS: denied known dc needs at time of assessment in the ER. CM met with patient to complete initial dc planning assessment. CM educated patient on the CM role and verbal consent given by patient to complete assessment. CM verified patient's address, phone number, and emergency contact phone numbers. Patient lives at home alone and reports she is independent in her care at home. She has home oxygen with portability. She also has a nebulizer. At discharge patient plans to return home and feels this is a safe discharge. CM discussed availability of home health, rehab services, and medical equipment. Patient denied known discharge needs at this time. Transportation provider at discharge will be her son. CM will continue to follow and will assist as needed with dc plans/needs. Maria Isabel Cobb RN, [facility] DCPIA - Discharge Planning Initial Assessment Updated by [email or web address]: Maria Isabel Cobb on 04/25/19 3:09 pm * Is the patient Alert and Oriented? Yes * How many steps to enter\exit or inside your home? None * PCP Dr. Andrews * Pharmacy [facility] on [address] * Preadmission Environment Home Alone * ADLs Independent * Equipment Nebulizer Oxygen * Other Equipment [employer] is DME provider. O2 with portability. * List name and contact numbers for known caregivers / representatives who currently or will assist patient after discharge: Clint crawford - [phone] * Verbal permission to speak to the caregivers and representatives has been obtained from the patient. Yes * Community resources currently utilized Other * Please name any agencies selected above. House keeper one time a week. * Additional services required to return to the preadmission environment? No * Can the patient safely return to the preadmission environment? Yes * Has this patient been hospitalized within the prior 30 days at any hospital? No Coverage Notice Reviewer: [id number] Oswald Lyon Notice Issued Date-Time: 05/02/2019 11:40 Notice Type: IM Discharge Notice Notice Delivered To: Patient Relationship to Patient: Bleach Tester Name: Delivery Method: HAND - Hand Delivered Lis Days: Prior Verbal Notification: Recipient Understood Notice: Yes Recipient Signature: Yes Med Rec Note Co-signed by Attending: Coverage Notice Comment: Reviewer: [id number] Oswald Lyon Notice Issued Date-Time: 05/02/2019 11:40 Notice Type: Patient Choice Letter Notice Delivered To: Patient Relationship to Patient: Bleach Tester Name: Delivery Method: HAND - Hand Delivered Lis Days: Prior Verbal Notification: Recipient Understood Notice: Yes Recipient Signature: Yes Med Rec Note Co-signed by Attending: Coverage Notice Comment: MABLE INPATIENT REHAB AT [facility] Last DP export: 05/02/19 10:53 a Patient Name: LAUREL SOTO Page [id number] at 1310 All edits/amendments must be made on the electronic document DICTATION DATE: 05/02/19 1310 NEURO PSYCH SALES SPECIALIST: SHAJI 05/02/19 1310 RPT#: [id number] DC DATE: STATUS: ADM IN [facility] [address] [place] [address] END OF REPORT
--- NOTE | 2019-05-02 13:25 | NUR ---
I have reviewed this patient and I concur with the Shift Assessment completed by the Licensed Practical Nurse today this shift.
--- NOTE | 2019-05-02 14:28 | MORECARE ---
CASE MANAGEMENT DISCHARGE SUMMARY PATIENT: LAUREL SOTO UNIT: [id number] ADM DATE: 04/25/19 AGE: 78 : 41 SEX: F ROOM/BED: D.2208 AUTHOR: TEODORO,DOC PHYSICIAN: REFERRING PHYSICIAN: BRYAN FELIX MD DATE OF SERVICE: 05/02/19 Discharge Plan Patient Name: LAUREL STOO Facility: [facility]:[place] : 1940 Planned Disposition: Home Anticipated Discharge Date: 04/29/19 Discharge Date: Expected LOS: 4 Initial Reviewer: [email or web address] Initial Review Date: 04/25/2019 Generated: 05/02/19 3:28 pm Comments DCP- Discharge Planning Updated by [id number]: Yuliana Lyon on 05/02/19 1:[address] PATIENT HAS CHANGED HER MIND AGAIN AND WANTS TO GO TO INPATIENT REHAB AT [facility] SHE WILL GO TO ROOM 1109 DCP- Discharge Planning Updated by [id number]: Yuliana Lyon on 05/02/19 12:[address] THE PATIENT HAS CHANGED HER MIND ABOUT INPATIENT REHAB, SHE WOULD LIKE TO TALK TO HER DR ABOUT HOME HEALTH DCP- Discharge Planning Updated by [email or web address]: Yuliana Lyon on 05/02/19 10:[address] IMM SERVED AND EXPLAINED. MABLE FOR INPATIENT REHAB AT [facility]. DCP- Discharge Planning Updated by [id number]: Maria Isabel Cobb on 04/25/19 2:[address] DC PLAN: Return home alone at vt. ANTICIPATED DC NEEDS: denied known dc needs at time of assessment in the ER. CM met with patient to complete initial dc planning assessment. CM educated patient on the CM role and verbal consent given by patient to complete assessment. CM verified patient's address, phone number, and emergency contact phone numbers. Patient lives at home alone and reports she is independent in her care at home. She has home oxygen with portability. She also has a nebulizer. At discharge patient plans to return home and feels this is a safe discharge. CM discussed availability of home health, rehab services, and medical equipment. Patient denied known discharge needs at this time. Transportation provider at discharge will be her son. CM will continue to follow and will assist as needed with dc plans/needs. Maria Isabel Cobb RN, [facility] DCPIA - Discharge Planning Initial Assessment Updated by [id number]: Maria Isabel Cobb on 04/25/19 3:09 pm * Is the patient Alert and Oriented? Yes * How many steps to enter\exit or inside your home? None * PCP Dr. Andrews * Pharmacy [facility] on [address] * Preadmission Environment Home Alone * ADLs Independent * Equipment Nebulizer Oxygen * Other Equipment [employer] is DME provider. O2 with portability. * List name and contact numbers for known caregivers / representatives who currently or will assist patient after discharge: Clint crawford - [phone] * Verbal permission to speak to the caregivers and representatives has been obtained from the patient. Yes * Community resources currently utilized Other * Please name any agencies selected above. House keeper one time a week. * Additional services required to return to the preadmission environment? No * Can the patient safely return to the preadmission environment? Yes * Has this patient been hospitalized within the prior 30 days at any hospital? No Coverage Notice Reviewer: [id number] Lyon Notice Issued Date-Time: 05/02/2019 11:40 Notice Type: IM Discharge Notice Notice Delivered To: Patient Relationship to Patient: Skiff Operator Name: Delivery Method: HAND - Hand Delivered Lis Days: Prior Verbal Notification: Recipient Understood Notice: Yes Recipient Signature: Yes Med Rec Note Co-signed by Attending: Coverage Notice Comment: Reviewer: [id number] Lyon Notice Issued Date-Time: 05/02/2019 11:40 Notice Type: Patient Choice Letter Notice Delivered To: Patient Relationship to Patient: Skiff Operator Name: Delivery Method: HAND - Hand Delivered Lis Days: Prior Verbal Notification: Recipient Understood Notice: Yes Recipient Signature: Yes Med Rec Note Co-signed by Attending: Coverage Notice Comment: MABLE INPATIENT REHAB AT [facility] Last DP export: 05/02/19 12:10 p Patient Name: LAUREL SOTO Page [phone] at 1428 All edits/amendments must be made on the electronic document DICTATION DATE: 05/02/191427 MORTGAGE LOAN ASSISTANT: SHAJI 05/02/191427 RPT#: [id number] DC DATE: STATUS: ADM IN [facility] [address] [place] [address] END OF REPORT
--- NOTE | 2019-05-02 15:42 | NUR ---
OT NOTE: PT COMPLETED ADL MOB WITH RW AND IV POLE REQUIRED MAX A SECONDARY TO EQUIPMENT. PT 02 SATS DROPPED TO 87 WITH ACTIVITY. PT QUICKLY RETURNED TO 94 SAT WITH REST. PT COMPLETED EOB SITTING BALANCE WITH SBA. PT COMPLETED BUE AROM EXS AT EOB. PT STATED SHE IS UNSURE IF SHE WANTS HOMEHEALTH. INPATIENT REHAB SALES AGENT PEST CONTROL SERVICE ON WAY TO ROOM TO DISCUSS OPTIONS. [id number] THANK YOU,HANS PETERSEN
--- NOTE | 2019-05-02 17:55 | NUR ---
TRANSFERRED TO INPATIENT REHAB ROOM 1109. AWAKE AND ALERT. NO DISTRESS NOTED. STABLE CONDITION UPON DEPARTURE. IV HAS TO BE RESITED C/O PAIN WHEN TRIED TO FLUSH.
--- NOTE | 2019-05-05 18:27 | MORECARE ---
CASE MANAGEMENT DISCHARGE SUMMARY PATIENT: LAUREL SOTO UNIT: [id number] ADM DATE: 04/25/19 AGE: 78 : 41 SEX: F ROOM/BED: D.2209 AUTHOR: TEODORO,DOC PHYSICIAN: REFERRING PHYSICIAN: BRYAN FELIX MD DATE OF SERVICE: 05/05/19 Discharge Plan Patient Name: LAUREL SOTO Facility: [facility]:[place] : 1940 Planned Disposition: Home Anticipated Discharge Date: 04/29/19 Discharge Date: 05/02/2019 Expected LOS: 4 Initial Reviewer: [email or web address] Initial Review Date: 04/25/2019 Generated: 05/05/19 7:27 pm Comments DCP- Discharge Planning Updated by [id number]: Yuliana Lyon on 05/02/19 1:[address] PATIENT HAS CHANGED HER MIND AGAIN AND WANTS TO GO TO INPATIENT REHAB AT [facility] SHE WILL GO TO ROOM 1109 DCP- Discharge Planning Updated by [email or web address]: Yuliana Lyon on 05/02/19 12:[address] THE PATIENT HAS CHANGED HER MIND ABOUT INPATIENT REHAB, SHE WOULD LIKE TO TALK TO HER DR ABOUT HOME HEALTH DCP- Discharge Planning Updated by [id number]: Yuliana Lyon on 05/02/19 10:[address] IMM SERVED AND EXPLAINED. MABLE FOR INPATIENT REHAB AT [facility]. DCP- Discharge Planning Updated by [id number]: Maria Isabel Cobb on 04/25/19 2:[address] DC PLAN: Return home alone at id. ANTICIPATED DC NEEDS: denied known dc needs at time of assessment in the ER. CM met with patient to complete initial dc planning assessment. CM educated patient on the CM role and verbal consent given by patient to complete assessment. CM verified patient's address, phone number, and emergency contact phone numbers. Patient lives at home alone and reports she is independent in her care at home. She has home oxygen with portability. She also has a nebulizer. At discharge patient plans to return home and feels this is a safe discharge. CM discussed availability of home health, rehab services, and medical equipment. Patient denied known discharge needs at this time. Transportation provider at discharge will be her son. CM will continue to follow and will assist as needed with dc plans/needs. Maria Isabel Cobb RN, [facility] DCPIA - Discharge Planning Initial Assessment Updated by [email or web address]: Maria Isabel Cobb on 04/25/19 3:09 pm * Is the patient Alert and Oriented? Yes * How many steps to enter\exit or inside your home? None * PCP Dr. Andrews * Pharmacy [facility] on [address] * Preadmission Environment Home Alone * ADLs Independent * Equipment Nebulizer Oxygen * Other Equipment [employer] is DME provider. O2 with portability. * List name and contact numbers for known caregivers / representatives who currently or will assist patient after discharge: Clint crawford - [phone] * Verbal permission to speak to the caregivers and representatives has been obtained from the patient. Yes * Community resources currently utilized Other * Please name any agencies selected above. House keeper one time a week. * Additional services required to return to the preadmission environment? No * Can the patient safely return to the preadmission environment? Yes * Has this patient been hospitalized within the prior 30 days at any hospital? No Coverage Notice Reviewer: [id number] Lyon Notice Issued Date-Time: 05/02/2019 11:40 Notice Type: IM Discharge Notice Notice Delivered To: Patient Relationship to Patient: Electrician Technician Name: Delivery Method: HAND - Hand Delivered Lis Days: Prior Verbal Notification: Recipient Understood Notice: Yes Recipient Signature: Yes Med Rec Note Co-signed by Attending: Coverage Notice Comment: Reviewer: [id number] Lyon Notice Issued Date-Time: 05/02/2019 11:40 Notice Type: Patient Choice Letter Notice Delivered To: Patient Relationship to Patient: Electrician Technician Name: Delivery Method: HAND - Hand Delivered Lis Days: Prior Verbal Notification: Recipient Understood Notice: Yes Recipient Signature: Yes Med Rec Note Co-signed by Attending: Coverage Notice Comment: MABLE INPATIENT REHAB AT [facility] Last DP export: 05/02/19 1:28 p Patient Name: LAUREL SOTO Page [id number] at 1827 All edits/amendments must be made on the electronic document DICTATION DATE: 05/05/191826 COMMUNITY AIDE: SHAJI 05/05/191826 RPT#: [id number] DC DATE:05/02/19 STATUS: DIS IN [facility] [address] [place] [address] END OF REPORT
== END 2019-05-02 18:06 | DRG 193 ==
LOC: D.ER 10:44 → D.MS 12:13
PROVIDERS: Family Medicine; Internal Medicine Nephrology; Internal Medicine Pulmonary Disease; ADMIT Family Medicine Adult Medicine; ATTEND Family Medicine Adult Medicine
DX: J11.08 Influenza due to unidentified influenza virus with specified pneumonia (principal); J96.01 Acute respiratory failure with hypoxia; J44.0 Chronic obstructive pulmonary disease with (acute) lower respiratory infection; J44.1 Chronic obstructive pulmonary disease with (acute) exacerbation; E87.2 Acidosis; E44.0 Moderate protein-calorie malnutrition; J90 Pleural effusion, not elsewhere classified; J69.0 Pneumonitis due to inhalation of food and vomit; I10 Essential (primary) hypertension; M19.90 Unspecified osteoarthritis, unspecified site; K21.9 Gastro-esophageal reflux disease without esophagitis; Z68.30 Body mass index [BMI] 30.0-30.9, adult; E86.0 Dehydration

== ENCOUNTER → 2019-05-27 09:48 | Outpatient (CLI) | payer MEDICARE, OTHER ==
--- NOTE | ~2019-05-27 | ST ---
PATIENT:LAUREL SOTO MEDICAL RECORD: [id number] SEX: F LOCATION:[facility] ORDER #: ADMISSION DATE: 05/27/19 AGE OF PATIENT: 78 REFERRING PHYSICIAN: INTERPRETING PHYSICIAN: CHRIS ATKINS MD DATE OF SERVICE: 05/27/2019 PROCEDURE: Nuclear stress test. INDICATION: Angina, shortness of breath. He was exercised on standard Lexiscan protocol with 33 mCi of sestamibi injected at peak stress, 11 mCi used previously for rest images. FINDINGS: Gated SPECT reveals preserved ejection fraction at 74% with good wall motion and thickening and brightening throughout all segments. SPECT imaging Cardiolite was used as myocardial fusion agent. There is homogeneous uptake throughout all segments at rest and stress with no evidence of inducible ischemia or previous infarction. OVERALL IMPRESSION: 1. This is a normal nuclear stress test with no evidence of inducible ischemia or previous infarction. 2. Gated SPECT reveals a preserved ejection fraction at 74%. In this patient with ongoing symptomatology, the current scan does not suggest the presence of hemodynamically significant coronary artery disease. Evaluate noncardiac etiology of chest pain. TRANSINT:[id number] Voice Confirmation ID: [id number] DOCUMENT ID: [id number] CHRIS ATKINS MD CC: JAKUB CUEVAS [id number] DICTATION DATE: 05/29/19 1425 EMPLOYMENT TRAINING SPECIALIST: 05/30/19 0135 DEP CLI 05/27/19 [id number] [place] [address]
[~2019-05-27 09:48] MED LIST: ALBUTEROL2.5 MG/3 M INH; BENICAR5 MG PO; COMBIVENT RESPIM4 GM INH; FLUTICASONE PRO16 GM NASAL; MUCINEX DM ER1 EAC1 PO; PREVALITE POWD231 GM PO; SINGULAIR10 MG PO
== END | disposition home or self-care (01) ==
LOC: D.HCCARDIO 09:48
PROVIDERS: ATTEND Internal Medicine Interventional Cardiology
DX: R06.09 Other forms of dyspnea (principal)

== ENCOUNTER → 2019-06-21 13:17 | Outpatient (CLI) | payer MEDICARE, OTHER | END | disposition home or self-care (01) | LOC: D.RT 13:17 | PROVIDERS: ATTEND Internal Medicine Pulmonary Disease | DX: J44.9 Chronic obstructive pulmonary disease, unspecified (principal) ==

== ENCOUNTER 2019-06-25 08:34 | Outpatient (CLI) | payer MEDICARE, OTHER ==
[~2019-06-25] VITALS: Ht 162.6 cm; Wt 53.1 kg
[2019-06-25 09:00] LABS: BASOPHILS 0.3 % (0-2); EOSINOPHILS 1.1 % (0-7); HEMATOCRIT 40.2 % (36.0-48.0); HEMOGLOBIN 12.6 g/dL (12-16); IMMATURE GRANULOCYTES 0.2 % (0-5); LYMPHOCYTES 16.1 % (15-50); MCH 28.8 pg (26.0-34.0); MCHC 31.3 g/dL (31.0-37.0); MCV 91.8 fL (80.0-100.0); MEAN PLATELET VOLUME 9.5 fL (7.4-10.4); MONOCYTES 6.7 % (2-11); NEUTROPHILS 75.6 % (40-80); PLATELET COUNT 294 10x3/uL (130-400); RBC 4.38 10x6/uL (4.00-5.40); RDW 13.1 % (11.5-14.5); WBC 6.4 10x3/uL (4.8-10.8)
[2019-06-25 09:04] LABS: APTT 33.2 SECONDS (22.8-39.4); INR 0.98 (0.85-1.17); PROTIME 12.9 SECONDS (11.6-15.0)
[2019-06-25 09:36] VITALS: BP 126/78; Ht 162.6 cm; Wt 53.1 kg
--- NOTE | 2019-06-25 14:37 | NUR ---
1440 FREQ VS DONE 1430 DR MCKAY HERE TO SEE PT. SAW CXR REPORT AND AWARE OF PTS NAUSEA AND NECK PAIN AND BACK PAIN AND DIZZINESS. MEDICATED PER ANESTHESIA FOR NAUSEA. COLD COMPRESS GIVEN TO PT.
--- NOTE | 2019-06-25 15:05 | NUR ---
1450 ASSISTED TO BATHROOM AND WAS ABLE TO URINATE. SLIGHTLY DIZZY. MILD NAUSEA AND CHRONIC PAIN IN BACK AND NECK
--- NOTE | 2019-06-25 15:43 | NUR ---
1540 ASSITED UP TO BATHROOM TO BEDSIDE COMMODE. PT DIZZY AFTER SITTING ON SIDE OF BED FOR A FEW MINUTES. NAUSEATED WHEN UP. RECIEVED 500ML OF IV FLUID
--- NOTE | 2019-06-25 17:27 | NUR ---
1340 TO ROOM DROWSEY BUT EASY TO ARROUSE. ON 3LITERS NC. VS STABLE O2 SAT 88 BUT INCREASE TO 94 WITH 3 LITERS MAINTAINED. HOB ELEVATED. NO SOB, NO COUGHING. C/O NAUSEA DIZZINESS AND H/A AND NECK AND BACK PAIN. IV W/O SWELLING. NO POST OP ORDERS NOTED. CALL PLACED TO DR VALLE OFFICE.
--- NOTE | 2019-06-25 17:32 | NUR ---
1400 ANESTHESIA NOTIFIED OF PTS NAUSEA. ORDERS GIVEN. I414 MEDICATED FOR NAUSEA AND FLUIDS GIVEN. APPROX 500ML. 1500 MEDICATED WITH TYLENOL PER REQUEST FOR H/A AND NECK AND BACK PAIN. TOLERATED WELL. TAKING ICE CHIPS. 1530 ASSITED TO BEDSIDE COMMODE. PT WEARS O2 AT NIGHT AND WHILE SHE IS WALKING. DIZZINESS CONTINUES. INSTRUCTED PT SHE WILL NEED SOMEONE TO STAY WITH HER FOR THE NIGHT. STATED SHE WILL CALL HER SON. 1645 ASSISTED TO BEDSIDE COMMODE WITH CONTINUED DIZZINESS. ANESTHESIA NOTIED TO COME AND ASSESS PT. PT HAS O2 AT HOME AND WEARS 2 LITERS WHEN WALKING AND AT NIGHT. PT TOLERATED A CUP OF ICE CREAM. STATED HER NAUSEA WAS A LITTLE BETTER AND H/A GONE BUT CONTINUES WITH DIZZINESS.
--- NOTE | 2019-06-25 17:39 | NUR ---
1700 IV REMOVED AND ASSISTED WITH GETTING DRESSED. INSTRUCTIONS IN PACKET AND GIVEN TO FAMILY MEMBER
== END 2019-06-25 17:26 | disposition home or self-care (01) ==
LOC: D.OPS 08:34
PROVIDERS: ATTEND Internal Medicine Pulmonary Disease
DX: R91.8 Other nonspecific abnormal finding of lung field (principal); J44.9 Chronic obstructive pulmonary disease, unspecified

== ENCOUNTER → 2019-07-09 09:13 | Outpatient (CLI) | payer MEDICARE, OTHER ==
[2019-06-25 09:36] VITALS: BMI 20.1
== END | disposition home or self-care (01) ==
LOC: D.MRI 09:13
PROVIDERS: ATTEND Internal Medicine Hematology & Oncology
DX: C34.12 Malignant neoplasm of upper lobe, left bronchus or lung (principal); I10 Essential (primary) hypertension; J44.9 Chronic obstructive pulmonary disease, unspecified; M19.90 Unspecified osteoarthritis, unspecified site; M79.7 Fibromyalgia

== ENCOUNTER 2019-07-22 05:24 | Day surgery (SDC) | payer MEDICARE, OTHER ==
[~2019-07-22] VITALS: Ht 162.6 cm; Wt 53.1 kg
[~2019-07-22 05:24] MED LIST changes: +ANORO ELLIPTA1 EACH INH; +AZELASTINE137 MCG/0. NASAL; +CATAPRES0.1 MG PO; +PHENERGAN25 M1 PO; +ZOFRAN4 MG PO
[2019-07-22 05:51] LABS: BASOPHILS 0.4 % (0-2); EOSINOPHILS 1.6 % (0-7); HEMATOCRIT 39.1 % (36.0-48.0); HEMOGLOBIN 12.1 g/dL (12-16); IMMATURE GRANULOCYTES 0.2 % (0-5); LYMPHOCYTES 21.6 % (15-50); MCH 28.2 pg (26.0-34.0); MCHC 30.9 g/dL (31.0-37.0); MCV 91.1 fL (80.0-100.0); MEAN PLATELET VOLUME 9.7 fL (7.4-10.4); MONOCYTES 7.6 % (2-11); NEUTROPHILS 68.6 % (40-80); PLATELET COUNT 268 10x3/uL (130-400); RBC 4.29 10x6/uL (4.00-5.40); RDW 13.5 % (11.5-14.5); WBC 5.5 10x3/uL (4.8-10.8)
[2019-07-22 06:52] VITALS: BP 140/73; Ht 162.6 cm; Wt 53.1 kg
[2019-07-22 06:54] LABS: APTT 30.9 SECONDS (22.8-39.4); INR 0.96 (0.85-1.17); PROTIME 12.8 SECONDS (11.6-15.0)
[2019-07-22] MEDS ORDERED: HYDROCODON-ACE1 EAC7 PO (09:06)
== END 2019-07-22 16:50 | disposition home or self-care (01) ==
LOC: D.PAN 05:24 → D.OPS 08:00 → D.PAN 08:00
PROVIDERS: Anesthesiology; ATTEND Surgery
DX: C34.90 Malignant neoplasm of unspecified part of unspecified bronchus or lung (principal); I10 Essential (primary) hypertension; J44.9 Chronic obstructive pulmonary disease, unspecified; J30.9 Allergic rhinitis, unspecified; J96.11 Chronic respiratory failure with hypoxia

== ENCOUNTER 2019-07-26 00:37 | Inpatient (IN) | payer MEDICARE, OTHER ==
[~2019-07-26] VITALS: Ht 162.6 cm; Wt 53.1 kg
[~2019-07-26 00:37] MED LIST changes: +HYDROCODON-ACE1 EAC7 PO
[2019-07-26] MEDS ORDERED: MUCINEX600 MG PO (00:44)
[2019-07-26 00:58] LABS: BASOPHILS 0.1 % (0-2); EOSINOPHILS 0.1 % (0-7); HEMATOCRIT 40.7 % (36.0-48.0); HEMOGLOBIN 12.8 g/dL (12-16); IMMATURE GRANULOCYTES 0.2 % (0-5); LYMPHOCYTES 6.5 % (15-50); MCH 28.6 pg (26.0-34.0); MCHC 31.4 g/dL (31.0-37.0); MCV 90.8 fL (80.0-100.0); MEAN PLATELET VOLUME 9.9 fL (7.4-10.4); MONOCYTES 3.6 % (2-11); NEUTROPHILS 89.5 % (40-80); PLATELET COUNT 244 10x3/uL (130-400); RBC 4.48 10x6/uL (4.00-5.40); RDW 13.3 % (11.5-14.5); WBC 11.8 10x3/uL (4.8-10.8)
[2019-07-26 01:02] LABS: BILIRUBIN NEGATIVE (NEGATIVE); GLUCOSE NEGATIVE (NEGATIVE); KETONE NEGATIVE (NEGATIVE); NITRITE NEGATIVE (NEGATIVE); UROBILINOGEN NORMAL (NORMAL)
[2019-07-26 01:11] LABS: CALC OSMOLALITY 282 mosm/kg (275-300); CALCIUM 9.5 mg/dL (8.5-10.1); CARBON DIOXIDE 30.8 mmol/L (21.0-32.0); CHLORIDE - SERUM 97 mmol/L (98-107); CREATININE - SERUM 0.8 mg/dL (0.6-1.3); POTASSIUM - SERUM 3.7 mmol/L (3.5-5.1); SODIUM 137 mmol/L (136-145); UREA NITROGEN 26 mg/dL (7-18); eGFR NON AFRICAN AMERICAN 73 mL/min (90-120)
[2019-07-26 01:13] LABS: GLUCOSE 171 mg/dL (74-106)
[2019-07-26 01:26] LABS: ALBUMIN 3.8 g/dL (3.4-5.0); ALKALINE PHOSPHATASE 101 U/L (30-120); ALT (SGPT) 22 U/L (10-68); BILIRUBIN - TOTAL 0.58 mg/dL (0.2-1.3); LIPASE 52 U/L (73-393); PRO BNP 250 pg/mL (0-450); PROTEIN - SERUM 7.8 g/dL (6.4-8.2); THYROID STIMULATING HORMONE 2.91 uIU/mL (0.36-3.74)
[2019-07-26 01:27] LABS: TROPONIN-I < 0.017 ng/mL (0.000-0.060)
--- NOTE | 2019-07-26 02:40 | NUR ---
PT TO RADIOLOGY.
--- NOTE | 2019-07-26 03:00 | NUR ---
PT RETURNED FROM RADIOLOGY.
[2019-07-26 06:46] VITALS: BP 156/83; BMI 20.1
[2019-07-26 08:45] VITALS: BP 129/66
--- NOTE | 2019-07-26 10:13 | NUR ---
THE NG TUBE HAS PULLED OUT 1000 CC OF GREEN THIN LIQUID. SHE DENIES ANY PAIN OR NAUSEA.
[2019-07-26 12:30] VITALS: BP 126/79
--- NOTE | 2019-07-26 13:05 | NUR ---
Bruising noted on left chest due to port. Wound care will monitor as needed.
[2019-07-26 15:24] VITALS: Ht 162.6 cm; Wt 53.1 kg
[2019-07-26 17:53] VITALS: BP 117/56
[2019-07-26 20:00] VITALS: BP 130/72
[2019-07-27 04:00] VITALS: BP 114/67
[2019-07-27 09:19] VITALS: BP 130/63
--- NOTE | 2019-07-27 11:46 | NUR ---
resting in bed, no distress noted, ng clamped, cont to monitor nausea, iv infusing with procal
[2019-07-27 12:43] VITALS: BP 111/53
[2019-07-27 17:54] VITALS: BP 120/60
[2019-07-27 20:00] VITALS: BP 141/70
[2019-07-28] VITALS: BP 132/72
[2019-07-28 04:00] VITALS: BP 121/65
[2019-07-28 07:05] LABS: HEMATOCRIT 32.9 % (36.0-48.0); HEMOGLOBIN 10.6 g/dL (12-16); MCH 28.8 pg (26.0-34.0); MCHC 32.2 g/dL (31.0-37.0); MCV 89.4 fL (80.0-100.0); MEAN PLATELET VOLUME 9.9 fL (7.4-10.4); RBC 3.68 10x6/uL (4.00-5.40); RDW 12.3 % (11.5-14.5); WBC 2.9 10x3/uL (4.8-10.8)
[2019-07-28 07:06] LABS: PLATELET COUNT 162 10x3/uL (130-400)
[2019-07-28 07:28] LABS: BASOPHILS 1 % (0-2); EOSINOPHILS 3 % (0-7); LYMPHOCYTES 24 % (15-50); MONOCYTES 1 % (2-11); NEUTROPHILS 71 % (40-80); PLATELET ESTIMATE NORMAL
--- NOTE | 2019-07-28 07:38 | NUR ---
UP TO BR, NO DISTRESS NOTED, NG IN PLACE, NO C/O NAUSEA OR VOMITING, CONT TO MONITOR
[2019-07-28 07:42] LABS: CALC OSMOLALITY 287 mosm/kg (275-300); CALCIUM 7.5 mg/dL (8.5-10.1); CARBON DIOXIDE 25.9 mmol/L (21.0-32.0); CHLORIDE - SERUM 108 mmol/L (98-107); CREATININE - SERUM 0.4 mg/dL (0.6-1.3); GLUCOSE 102 mg/dL (74-106); POTASSIUM - SERUM 3.4 mmol/L (3.5-5.1); SODIUM 143 mmol/L (136-145); UREA NITROGEN 21 mg/dL (7-18); eGFR NON AFRICAN AMERICAN > 90 mL/min (90-120)
[2019-07-28 08:00] VITALS: BP 151/67
[2019-07-28 12:00] VITALS: BP 124/56
[2019-07-28 16:00] VITALS: BP 140/65
--- NOTE | 2019-07-28 18:24 | NUR ---
PT PULLED IV OUT, DR SYKES, STATES THAT IV MAY STAY OUT UNLESS PT STARTS TO HAVE VOMITING,
[2019-07-28 20:00] VITALS: BP 136/63
[2019-07-29] VITALS: BP 112/40
[2019-07-29 04:00] VITALS: BP 135/70
--- NOTE | 2019-07-29 07:45 | NUR ---
PT RESTING IN BED WITH EYES CLOSED. OPENS EYES SPONTANEOUSLY STAFF ENTERS ROOM. RESP EVEN AND UNLABORED. DENIES PAIN AT THIS TIME. PT VOICES HOPEFULLNESS THAT SHE WILL D/C HOME TODAY, SHE VOICES FEELING "SO MUCH BETTER". DENIES FURTHER NEEDS AT THIS TIME. CL WITHIN REACH. ENCOURAGED TO CALL WITH NEEDS. CONTINUE POC
[2019-07-29 08:10] VITALS: BP 141/61
--- NOTE | 2019-07-29 09:23 | NUR ---
PT RESTING QUIETLY IN BED. NO ACUTE DISTRESS NOTED AT THIS TIME. MORNING MEDICATIONS ADMINISTERED PER MD ORDERS. DENIES FURTHER NEEDS AT THIS TIME. CL WITHIN REACH. ENCOURAGED TO CALL WITH NEEDS.
[2019-07-29 10:02] LABS: HEMATOCRIT 35.6 % (36.0-48.0); HEMOGLOBIN 11.5 g/dL (12-16); LYMPHOCYTES 17.8 % (15-50); MCH 28.5 pg (26.0-34.0); MCHC 32.3 g/dL (31.0-37.0); MCV 88.1 fL (80.0-100.0); MEAN PLATELET VOLUME 9.8 fL (7.4-10.4); NEUTROPHILS 77.4 % (40-80); RBC 4.04 10x6/uL (4.00-5.40); RDW 12.5 % (11.5-14.5)
[2019-07-29 10:12] LABS: PLATELET COUNT 215 10x3/uL (130-400); WBC 4.4 10x3/uL (4.8-10.8)
[2019-07-29 10:16] LABS: ALBUMIN 2.8 g/dL (3.4-5.0); ALKALINE PHOSPHATASE 68 U/L (30-120); ALT (SGPT) 15 U/L (10-68); BILIRUBIN - TOTAL 0.53 mg/dL (0.2-1.3); CALC OSMOLALITY 277 mosm/kg (275-300); CALCIUM 8.1 mg/dL (8.5-10.1); CARBON DIOXIDE 26.9 mmol/L (21.0-32.0); CHLORIDE - SERUM 104 mmol/L (98-107); CREATININE - SERUM 0.5 mg/dL (0.6-1.3); GLUCOSE 146 mg/dL (74-106); POTASSIUM - SERUM 3.4 mmol/L (3.5-5.1); PROTEIN - SERUM 6.5 g/dL (6.4-8.2); SODIUM 138 mmol/L (136-145); eGFR NON AFRICAN AMERICAN > 90 mL/min (90-120)
[2019-07-29 10:17] LABS: UREA NITROGEN 11 mg/dL (7-18)
[2019-07-29 11:54] VITALS: BP 119/55
[2019-07-29 16:17] VITALS: BP 133/69
--- NOTE | 2019-07-29 16:48 | NUR ---
PT DISCHARGE PAPERWORK PROVIDED TO PT. DISCUSSED CONTINUATION OF HOME MEDICATIONS. DISCUSSED FOLLOW UP APPOINTMENTS WITH DR. MINOR AFTER COMPLETION OF CHEMO AND DR. MOORE ON WEDNESDAY JULY 31, 2019. PT VOICES UNDERSTANDING WITHOUT QUESTIONS. PT TAKEN OUT VIA W/C TO PRIVATE VEHICLE WITH ALL PERSONAL BELONGINGS.
== END 2019-07-29 16:51 | disposition home or self-care (01) | DRG 389 ==
LOC: D.ER 00:37 → D.MS 03:39
PROVIDERS: Family Medicine; Surgery; ADMIT Internal Medicine Nephrology; ATTEND Internal Medicine Nephrology
DX: K56.51 Intestinal adhesions [bands], with partial obstruction (principal); C34.90 Malignant neoplasm of unspecified part of unspecified bronchus or lung; N17.9 Acute kidney failure, unspecified; I10 Essential (primary) hypertension; D64.9 Anemia, unspecified; J44.9 Chronic obstructive pulmonary disease, unspecified; E87.6 Hypokalemia; K21.9 Gastro-esophageal reflux disease without esophagitis

== ENCOUNTER 2019-11-26 14:31 | Emergency (ER) | payer MEDICARE, OTHER ==
[~2019-11-26] VITALS: Ht 162.6 cm; Wt 54.5 kg
[~2019-11-26 14:31] MED LIST changes: +MUCINEX600 MG PO
[2019-11-26 14:58] VITALS: Ht 162.6 cm; Wt 54.5 kg
[2019-11-26] MEDS ORDERED: KEYTRUDA (15:03)
[2019-11-26] MEDS ORDERED: [UNRECOGNIZED DRUG - OTHER] PO (15:03)
[2019-11-26 15:26] LABS: BASOPHILS 0.2 % (0-2); EOSINOPHILS 0.5 % (0-7); HEMATOCRIT 37.3 % (36.0-48.0); IMMATURE GRANULOCYTES 0.2 % (0-5); LYMPHOCYTES 19.9 % (15-50); MCH 29.2 pg (26.0-34.0); MCHC 32.2 g/dL (31.0-37.0); MCV 90.8 fL (80.0-100.0); MEAN PLATELET VOLUME 9.6 fL (7.4-10.4); MONOCYTES 6.4 % (2-11); NEUTROPHILS 72.8 % (40-80); PLATELET COUNT 206 10x3/uL (130-400); RBC 4.11 10x6/uL (4.00-5.40); RDW 13.2 % (11.5-14.5)
[2019-11-26 15:36] LABS: CALC OSMOLALITY 281 mosm/kg (275-300); CALCIUM 9.1 mg/dL (8.5-10.1); CARBON DIOXIDE 29.2 mmol/L (21.0-32.0); CHLORIDE - SERUM 103 mmol/L (98-107); CREATININE - SERUM 0.7 mg/dL (0.6-1.3); GLUCOSE 108 mg/dL (74-106); POTASSIUM - SERUM 3.7 mmol/L (3.5-5.1); SODIUM 139 mmol/L (136-145); UREA NITROGEN 21 mg/dL (7-18); eGFR NON AFRICAN AMERICAN 86 mL/min (90-120)
[2019-11-26 15:42] LABS: ALBUMIN 3.9 g/dL (3.4-5.0); ALKALINE PHOSPHATASE 103 U/L (30-120); ALT (SGPT) 18 U/L (10-68); AMYLASE - SERUM 55 U/L (25-115); BILIRUBIN - TOTAL 0.21 mg/dL (0.2-1.3); LIPASE 85 U/L (73-393); PROTEIN - SERUM 7.5 g/dL (6.4-8.2); TROPONIN-I < 0.017 ng/mL (0.000-0.060)
[2019-11-26 16:17] LABS: BILIRUBIN NEGATIVE (NEGATIVE); KETONE NEGATIVE (NEGATIVE); NITRITE NEGATIVE (NEGATIVE); UROBILINOGEN NORMAL (NORMAL)
[2019-11-26] MEDS ORDERED: CHRONULAC30 ML PO (16:59)
[2019-11-26 17:25] VITALS: BP 144/73
== END 2019-11-26 17:27 | disposition home or self-care (01) ==
LOC: D.ER 14:31
PROVIDERS: Emergency Medicine
DX: R10.9 Unspecified abdominal pain (principal); K59.00 Constipation, unspecified; R73.9 Hyperglycemia, unspecified; I10 Essential (primary) hypertension; J44.9 Chronic obstructive pulmonary disease, unspecified; K21.9 Gastro-esophageal reflux disease without esophagitis; R11.0 Nausea

== ENCOUNTER → 2020-05-21 11:08 | Outpatient (CLI) | payer MEDICARE, OTHER ==
[2020-04-22 20:15] VITALS: BMI 21.5
[~2020-05-21 11:08] MED LIST changes: +CHRONULAC30 ML PO; +DECADRON0.5 MG PO; +DECADRON4 MG PO; +DEXAMETHASONE2 MG PO; +KEPPRA1000 MG PO; +KEYTRUDA; +MECLIZINE HCL25 MG PO; +MELATONIN 3 MG1 TAB PO; +NAMENDA10 MG PO; +OMNICEF300 MG PO; +PROTONIX40 MG PO; +VITAMIN C PO; +VITAMIN D325 MC1 PO; +[UNRECOGNIZED DRUG - OTHER] PO
[2020-05-21 12:29] LABS: BILIRUBIN NEGATIVE (NEGATIVE); KETONE MODERATE mg/dL (NEGATIVE); NITRITE NEGATIVE (NEGATIVE)
[2020-05-21 12:30] LABS: BACTERIA FEW HPF (NONE SEEN); SQUAMOUS EPITHELIAL 0-5 HPF (0-4); WHITE CELLS - URINE 0-5 HPF (0-4)
== END | disposition home or self-care (01) ==
LOC: D.LABREF 11:08
PROVIDERS: ATTEND Family Medicine
DX: C34.92 Malignant neoplasm of unspecified part of left bronchus or lung (principal)

== ENCOUNTER → 2020-05-25 15:26 | Outpatient (CLI) | payer MEDICARE, OTHER ==
[2020-04-22 20:15] VITALS: BMI 21.5
== END | disposition home or self-care (01) ==
LOC: D.LABREF 15:26
PROVIDERS: ATTEND Family Medicine
DX: C34.92 Malignant neoplasm of unspecified part of left bronchus or lung (principal); J12.82 Pneumonia due to coronavirus disease 2019

== ENCOUNTER 2020-06-04 16:08 | Inpatient (IN) | payer MEDICARE, OTHER ==
[~2020-06-04] VITALS: Ht 162.6 cm; Wt 48.5 kg
[2020-06-04 17:02] LABS: HEMATOCRIT 31.5 % (36.0-48.0); HEMOGLOBIN 9.8 g/dL (12-16); LYMPHOCYTE ABS# 0.91 10x3/uL (1.18-3.74); MCHC 31.1 g/dL (31.0-37.0); MCV 96.3 fL (80.0-100.0); NEUTROPHIL ABS# 4.56 10x3/uL (1.56-6.13); RBC 3.27 10x6/uL (4.00-5.40); RDW 20.3 % (11.5-14.5); WBC 6.1 10x3/uL (4.8-10.8)
[2020-06-04 17:03] LABS: PLATELET COUNT 209 10x3/uL (130-400)
[2020-06-04 17:08] LABS: APTT 24.3 SECONDS (22.8-39.4); INR 1.07 (0.85-1.17); PROTIME 12.8 SECONDS (11.6-15.0)
[2020-06-04 17:14] LABS: HYPER SEGMENTED NEUTROPHILS 3+; LYMPHOCYTES 17 % (15-50); MONOCYTES 6 % (2-11); NEUTROPHILS 77 % (40-80); PLATELET ESTIMATE NORMAL
[2020-06-04 17:17] LABS: CALC OSMOLALITY 292 mosm/kg (275-300); CARBON DIOXIDE 31.5 mmol/L (21.0-32.0); CHLORIDE - SERUM 105 mmol/L (98-107); CREATININE - SERUM 0.4 mg/dL (0.6-1.3); POTASSIUM - SERUM 3.4 mmol/L (3.5-5.1); SODIUM 144 mmol/L (136-145); UREA NITROGEN 28 mg/dL (7-18); eGFR NON AFRICAN AMERICAN > 90 mL/min (90-120)
[2020-06-04 17:18] LABS: GLUCOSE 104 mg/dL (74-106)
[2020-06-04 17:21] LABS: BILIRUBIN NEGATIVE (NEGATIVE); KETONE MODERATE mg/dL (NEGATIVE); NITRITE NEGATIVE (NEGATIVE); UROBILINOGEN NORMAL mg/dL (< 2)
[2020-06-04 17:22] LABS: WHITE CELLS - URINE 0-5 HPF (0-4)
[2020-06-04 17:23] LABS: BACTERIA FEW HPF (NONE SEEN)
[2020-06-04 17:29] LABS: ALKALINE PHOSPHATASE 129 U/L (30-120); ALT (SGPT) 56 U/L (10-68); BILIRUBIN - TOTAL 0.78 mg/dL (0.2-1.3); MAGNESIUM - SERUM 2.3 mg/dL (1.8-2.4); PROTEIN - SERUM 6.5 g/dL (6.4-8.2); TROPONIN-I < 0.017 ng/mL (0.000-0.060)
--- NOTE | 2020-06-04 19:32 | NUR ---
PATIENT'S SON'S NAME REBEKAH MARR NUMBER [phone]
[2020-06-04] MEDS ORDERED: ANORO ELLIPTA1 EACH INH (20:02)
[2020-06-04] MEDS ORDERED: LEVAQUIN750 MG PO (20:08)
--- NOTE | 2020-06-04 21:45 | NUR ---
PT BLADDER VERY DISTENDED, TENDER TO TOUCH. BLADDER SCAN SHOWED 800+, CALLED [facility] AND RECIEVED ORDER FOR HINES PLACEMENT. PLACED 16F HINES. 1400ML OUT IMMMEDIATELY OF DARK TEA COLORED URINE
[2020-06-05] VITALS (7 sets, daily range): BP systolic 121–157; BP diastolic 56–74; BMI 18.4; BMI 18.3
--- NOTE | 2020-06-05 05:58 | NUR ---
Pt has rested in bed well this night. Pt has been assisted to turn but, insists on lying on the Lt side. Bacitracin was obtained by AOD and applied to Lt outer ear where 2 small sores are. Pt was tearful and crying when first admitted and woke. Pt did state at that time, "Why can't I just go be with Raulito?" Reassurance provided to pt by staff and pain medication administered.
[2020-06-05 06:07] LABS: BASOPHILS 0.2 % (0-2); EOSINOPHILS 0.2 % (0-7); HEMATOCRIT 27.6 % (36.0-48.0); HEMOGLOBIN 8.3 g/dL (12-16); IMMATURE GRANULOCYTES 4.2 % (0-5); LYMPHOCYTE ABS# 0.65 10x3/uL (1.18-3.74); LYMPHOCYTES 13.7 % (15-50); MCH 29.2 pg (26.0-34.0); MCHC 30.1 g/dL (31.0-37.0); MCV 97.2 fL (80.0-100.0); MEAN PLATELET VOLUME 9.1 fL (7.4-10.4); MONOCYTES 6.5 % (2-11); NEUTROPHIL ABS# 3.57 10x3/uL (1.56-6.13); NEUTROPHILS 75.2 % (40-80); PLATELET COUNT 198 10x3/uL (130-400); RBC 2.84 10x6/uL (4.00-5.40); RDW 20.8 % (11.5-14.5); WBC 4.8 10x3/uL (4.8-10.8)
[2020-06-05 06:43] LABS: ALBUMIN 2.6 g/dL (3.4-5.0); ALKALINE PHOSPHATASE 114 U/L (30-120); ALT (SGPT) 48 U/L (10-68); BILIRUBIN - TOTAL 0.58 mg/dL (0.2-1.3); CALC OSMOLALITY 290 mosm/kg (275-300); CHLORIDE - SERUM 108 mmol/L (98-107); CREATININE - SERUM 0.3 mg/dL (0.6-1.3); GLUCOSE 84 mg/dL (74-106); MAGNESIUM - SERUM 2.3 mg/dL (1.8-2.4); PHOSPHOROUS 3.1 mg/dL (2.5-4.9); POTASSIUM - SERUM 3.2 mmol/L (3.5-5.1); PROTEIN - SERUM 5.2 g/dL (6.4-8.2); SODIUM 145 mmol/L (136-145); UREA NITROGEN 21 mg/dL (7-18); eGFR NON AFRICAN AMERICAN > 90 mL/min (90-120)
[2020-06-06] VITALS: BP 139/66
[2020-06-06 04:00] VITALS: BP 138/64
[2020-06-06 06:24] LABS: BASOPHILS 0.3 % (0-2); EOSINOPHILS 0.3 % (0-7); HEMATOCRIT 23.7 % (36.0-48.0); LYMPHOCYTE ABS# 0.57 10x3/uL (1.18-3.74); LYMPHOCYTES 15.1 % (15-50); MCH 29.3 pg (26.0-34.0); MCHC 30.4 g/dL (31.0-37.0); MCV 96.3 fL (80.0-100.0); MEAN PLATELET VOLUME 8.7 fL (7.4-10.4); MONOCYTES 6.6 % (2-11); NEUTROPHIL ABS# 2.74 10x3/uL (1.56-6.13); NEUTROPHILS 72.7 % (40-80); PLATELET COUNT 182 10x3/uL (130-400); RBC 2.46 10x6/uL (4.00-5.40); RDW 20.7 % (11.5-14.5); WBC 3.8 10x3/uL (4.8-10.8)
[2020-06-06 06:40] LABS: CALCIUM 8.1 mg/dL (8.5-10.1); CARBON DIOXIDE 27.9 mmol/L (21.0-32.0); CHLORIDE - SERUM 109 mmol/L (98-107); GLUCOSE 81 mg/dL (74-106); SODIUM 145 mmol/L (136-145)
[2020-06-06 06:41] LABS: CALC OSMOLALITY 287 mosm/kg (275-300); CREATININE - SERUM 0.2 mg/dL (0.6-1.3); PHOSPHOROUS 2.1 mg/dL (2.5-4.9); UREA NITROGEN 13 mg/dL (7-18); eGFR NON AFRICAN AMERICAN > 90 mL/min (90-120)
--- NOTE | 2020-06-06 06:43 | NUR ---
Pt rested in bed this shift. IV remained patent and running per order. Pt did c/o pain twice during shift and was mwedicated for same. Pt continues to turn self onto left side, despite breakdown. Lab just called this nurse with result for a critical K+ of 2.8
[2020-06-06 06:44] LABS: POTASSIUM - SERUM 2.8 mmol/L (3.5-5.1)
--- NOTE | 2020-06-06 07:19 | NUR ---
cRITICAL k+ CALLED INTO [facility], PROVIDER AUTHORIZATION REP.
[2020-06-06 08:12] LABS: HEMOGLOBIN 7.2 g/dL (12-16)
[2020-06-06 09:16] VITALS: BP 130/67
--- NOTE | 2020-06-06 10:32 | NUR ---
I have reviewed this patient and I concur with the Shift Assessment completed by the Licensed Practical Nurse today this shift.
--- NOTE | 2020-06-06 10:58 | NUR ---
WAS MEDICATED WITH MOPRHINE PER ORDERS FOR C/O PAIN. C/L IN REACH AT BEDSIDE.
[2020-06-06 11:14] VITALS: Ht 162.6 cm; Wt 48.5 kg
--- NOTE | 2020-06-06 12:59 | NUR ---
REC'D CALL FROM DR. MOORE ABOUT PT BEING ON HOSPICE SERVICE THIS NURSE INFORMED HER THAT PT WAS NOT UNDER ANY HOSPICE SERVICES AT THIS TIME. STATED THAT SHE HAD SPOKE WTH SON REBEKAH MARR AND THAT HE AND HIS BROTHER WAS IN AGREEMENT TO PLACE PT ON HOSPICE CARE. THIS NURSE ALSO CALLED AND SPOKE WITH REBEKAH MARR TO MAKE SURE THAT THE FAMILY WISHES ARE CARED OUT AND HE WAS IN AGREEMENT FOR HOSPICE SERVICE. THEY WANT WHICH EVERY HOSPICE SERVICE DR. MOORE RECOMMEMD. SON WILL BE HERE LATER ON TODAY.
[2020-06-06 14:22] VITALS: BP 124/66
[2020-06-06 18:32] VITALS: BP 146/68
--- NOTE | 2020-06-06 20:13 | NUR ---
Assumed care of pt after bedside report/rounds. Pt assisted to turn and reposition. Pt hollering out in pain. This nurse just administered PRN MS. Pt does continue to turn to Left side even with repositioning. Remains confused and disoriented. Pt refused food. Will take fluids when offered if cold ice water. Mcintyre remins patent and IV infusing per order. Treatment to Lt ear per order.
[2020-06-06 21:25] VITALS: BP 136/70
[2020-06-07 00:55] VITALS: BP 136/58
[2020-06-07 05:41] VITALS: BP 135/65
[2020-06-07 05:53] LABS: BASOPHILS 0.2 % (0-2); EOSINOPHILS 0 % (0-7); HEMATOCRIT 25.2 % (36.0-48.0); HEMOGLOBIN 7.6 g/dL (12-16); IMMATURE GRANULOCYTES 5.8 % (0-5); LYMPHOCYTE ABS# 0.56 10x3/uL (1.18-3.74); LYMPHOCYTES 12.9 % (15-50); MCHC 30.2 g/dL (31.0-37.0); MCV 96.2 fL (80.0-100.0); MEAN PLATELET VOLUME 8.6 fL (7.4-10.4); MONOCYTES 8.5 % (2-11); NEUTROPHIL ABS# 3.14 10x3/uL (1.56-6.13); NEUTROPHILS 72.6 % (40-80); PLATELET COUNT 194 10x3/uL (130-400); RBC 2.62 10x6/uL (4.00-5.40); WBC 4.3 10x3/uL (4.8-10.8)
[2020-06-07 06:22] LABS: CALC OSMOLALITY 281 mosm/kg (275-300); CALCIUM 7.9 mg/dL (8.5-10.1); CARBON DIOXIDE 26.4 mmol/L (21.0-32.0); CHLORIDE - SERUM 109 mmol/L (98-107); CREATININE - SERUM 0.2 mg/dL (0.6-1.3); GLUCOSE 77 mg/dL (74-106); MAGNESIUM - SERUM 1.9 mg/dL (1.8-2.4); PHOSPHOROUS 2.1 mg/dL (2.5-4.9); POTASSIUM - SERUM 3.3 mmol/L (3.5-5.1); SODIUM 143 mmol/L (136-145); UREA NITROGEN 8 mg/dL (7-18); eGFR NON AFRICAN AMERICAN > 90 mL/min (90-120)
[2020-06-07 08:26] VITALS: BP 141/68
[2020-06-07] MEDS ORDERED: OMNICEF300 MG PO (10:52)
--- NOTE | 2020-06-07 11:43 | MORECARE ---
CASE MANAGEMENT DISCHARGE SUMMARY PATIENT: LAUREL SOTO UNIT: [id number] ADM DATE: 06/05/20 AGE: 79 : 41 SEX: F ROOM/BED: D.2202 AUTHOR: TEODORO,DOC PHYSICIAN: REFERRING PHYSICIAN: JESSEE LARSON MD DATE OF SERVICE: 06/07/20 Case Management Discharge Planning Summary COMMENTS ENTERED DATE: 06/07/20 11:36 CT COMMENT TYPE: Discharge Planning REVIEWER: Fidel Newell Late Entry. Telephone conversation with patient at 1620 on 06 June 2020 to complete DC plan and needs, spoke with Clint Shirley ([phone]) patient's son. Clint stated that he is home around the clock and will be there for his mother. MABLE for [facility] signed and placed in chart. Spoke with Maria Isabel of [facility]. All equipment is ordered and ready for a JUN 07 admission. Maria Isabel stated that should family members need help with round the clock presence, then arrangements for that service can be coordinated through the hospice. Clint voiced no other needs at this time and is satisfied with DC plan. Clinicals faxed to [facility]. DC IMM telephonically explained, signed, and placed on chart per current Isolation protocols. CM will continue to follow and will assist as needed with dc plans/needs. DCP REVIEW SUMMARY ANTICIPATED D/C DATE: 06/07/2020 EXPECTED LOS : 2 CASE STATUS: DCP Initiated INITIAL REVIEW: 06/04/2020 INITIAL REVIEWER: Fidel Newell FINAL DISCHARGE DISPOSITION: : FINAL REVIEWER: FINAL REVIEW DATE: DCP Focus Questions & Answers - Added on: QUESTION: ANSWER : PATIENT: LAUREL SOTO ENCOUNTER: [id number] MEDICAL RECORD#: [id number] ADMISSION DATE: 06/05/2020 DISCHARGE DATE: ATTENDING MD: : AGE: 79 MARITAL STATUS: W DC PLAN ID: [id number] FACILITY: [facility] PRINTED ON: 06/07/20 11:42 CT All edits/amendments must be made on the electronic document DICTATION DATE: 06/07/20 114 BELT CHANGER: SHAJI 06/07/20 114 RPT#: [id number] DC DATE: STATUS: ADM IN [facility] [address] [place] [address] END OF REPORT
[2020-06-07 11:55] VITALS: BP 112/76
--- NOTE | 2020-06-07 13:22 | NUR ---
[employer] CALLED FOR PICKUP. WILL CALL BROTHER ON ARRIVAL.
--- NOTE | 2020-06-07 15:14 | NUR ---
PT PICKED UP BY [email or web address] TO TRANSPORT HOME. IV REMOVED. BROTHER, REBEKAH, CALLED.
--- NOTE | 2020-06-07 15:19 | MORECARE ---
CASE MANAGEMENT DISCHARGE SUMMARY PATIENT: LAUREL SOTO UNIT: [id number] ADM DATE: 06/05/20 AGE: 79 : 42 SEX: F ROOM/BED: D.2202 AUTHOR: TEODORO,DOC PHYSICIAN: REFERRING PHYSICIAN: JESSEE LARSON MD DATE OF SERVICE: 06/07/20 Case Management Discharge Planning Summary COMMENTS ENTERED DATE: 06/07/20 11:36 CT COMMENT TYPE: Discharge Planning REVIEWER: Fidel Newell Late Entry. Telephone conversation with patient at 1620 on 06 June 2020 to complete DC plan and needs, spoke with Clint Shirley ([phone]) patient's son. Clint stated that he is home around the clock and will be there for his mother. MABLE for [facility] signed and placed in chart. Spoke with Maria Isabel of [facility]. All equipment is ordered and ready for a JUN 07 admission. Maria Isabel stated that should family members need help with round the clock presence, then arrangements for that service can be coordinated through the hospice. Clint voiced no other needs at this time and is satisfied with DC plan. Clinicals faxed to [facility]. DC IMM telephonically explained, signed, and placed on chart per current Isolation protocols. CM will continue to follow and will assist as needed with dc plans/needs. DCP REVIEW SUMMARY ANTICIPATED D/C DATE: 06/07/2020 EXPECTED LOS : 2 CASE STATUS: DCP Initiated INITIAL REVIEW: 06/04/2020 INITIAL REVIEWER: Fidel Newell FINAL DISCHARGE DISPOSITION: : FINAL REVIEWER: FINAL REVIEW DATE: DCP Focus Questions & Answers - Added on: QUESTION: ANSWER : PATIENT: LAUREL SOTO ENCOUNTER: [id number] MEDICAL RECORD#: [id number] ADMISSION DATE: 06/05/2020 DISCHARGE DATE: 06/07/2020 ATTENDING MD: : AGE: 79 MARITAL STATUS: W DC PLAN ID: [id number] FACILITY: [facility] PRINTED ON: 06/07/20 15:19 CT All edits/amendments must be made on the electronic document DICTATION DATE: 06/07/201518 SUPERVISOR DELIVERY DEPARTMENT: SHAJI 06/07/201518 RPT#: [id number] DC DATE:06/07/20 STATUS: DIS [facility] [address] [facility] [address] END OF REPORT
--- NOTE | 2020-06-08 10:51 | MORECARE ---
CASE MANAGEMENT DISCHARGE SUMMARY PATIENT: LAURLE SOTO UNIT: [id number] ADM DATE: 06/05/20 AGE: 79 : 42 SEX: F ROOM/BED: D.2202 AUTHOR: TEODORO,DOC PHYSICIAN: REFERRING PHYSICIAN: JESSEE LARSON MD DATE OF SERVICE: 06/08/20 Case Management Discharge Planning Summary COMMENTS ENTERED DATE: 06/07/20 11:36 CT COMMENT TYPE: Discharge Planning REVIEWER: Fidel Newell Late Entry. Telephone conversation with patient at 1620 on 06 June 2020 to complete DC plan and needs, spoke with Clint Shirley ([phone]) patient's son. Clint stated that he is home around the clock and will be there for his mother. MABLE for [facility] signed and placed in chart. Spoke with Maria Isabel of [facility]. All equipment is ordered and ready for a JUN 07 admission. Maria Isabel stated that should family members need help with round the clock presence, then arrangements for that service can be coordinated through the hospice. Clint voiced no other needs at this time and is satisfied with DC plan. Clinicals faxed to [facility]. DC IMM telephonically explained, signed, and placed on chart per current Isolation protocols. CM will continue to follow and will assist as needed with dc plans/needs. DCP REVIEW SUMMARY ANTICIPATED D/C DATE: 06/07/2020 EXPECTED LOS : 2 CASE STATUS: DCP Complete INITIAL REVIEW: 06/04/2020 INITIAL REVIEWER: Fidel Newell FINAL DISCHARGE DISPOSITION: 50 : In-Home Hospice Care FINAL REVIEWER: Brittani Miller FINAL REVIEW DATE: DCP Focus Questions & Answers - Added on: QUESTION: ANSWER : PATIENT: LAUREL SOTO ENCOUNTER: [id number] MEDICAL RECORD#: [id number] ADMISSION DATE: 06/05/2020 DISCHARGE DATE: 06/07/2020 ATTENDING MD: CANDIDO: AGE: 79 MARITAL STATUS: W DC PLAN ID: [id number] FACILITY: [facility] PRINTED ON: 06/08/20 10:51 CT All edits/amendments must be made on the electronic document DICTATION DATE: 06/08/20 105 MATH AND SCIENCE INSTRUCTOR: SHAJI 06/08/20 105 RPT#: [id number] DC DATE:06/07/20 STATUS: DIS IN [facility] [address] [place] [address] END OF REPORT
== END 2020-06-07 15:15 | disposition home health service (06) | DRG 948 ==
LOC: D.ER 16:08 → OBSVTIME 18:37 → D.MS 18:37
PROVIDERS: Emergency Medicine; ADMIT Family Medicine; ATTEND Family Medicine
DX: R53.1 Weakness (principal); C79.31 Secondary malignant neoplasm of brain; C34.90 Malignant neoplasm of unspecified part of unspecified bronchus or lung; N39.0 Urinary tract infection, site not specified; R62.7 Adult failure to thrive; Z68.27 Body mass index [BMI] 27.0-27.9, adult; R33.9 Retention of urine, unspecified; D64.9 Anemia, unspecified; I10 Essential (primary) hypertension; E78.5 Hyperlipidemia, unspecified; J43.9 Emphysema, unspecified; M79.7 Fibromyalgia; K21.9 Gastro-esophageal reflux disease without esophagitis; M19.90 Unspecified osteoarthritis, unspecified site; K81.1 Chronic cholecystitis; G40.909 Epilepsy, unspecified, not intractable, without status epilepticus; Z86.16 Personal history of COVID-19; F03.90 Unspecified dementia, unspecified severity, without behavioral disturbance, psychotic disturbance, mood disturbance, and anxiety